=== PATIENT | male | born 1955 | race Caucasian/White ===

== ENCOUNTER → 2016-10-08 | Outpatient (CLI) | payer BC ==
[~2016-10-08] MED LIST: ADVIN10/60 INH; ALLO300T2 PO; ASPI81TA21 PO; AZEL0.15 NAE; FLUT27.5 NAE; FRS/40 PO; GLIM1TAB PO; IPRA17AE2 IN; LEVO-14 PO; LEVO1TAB35 PO; LORA5TAB3 PO; METF1000 PO; METO100T7 PO; SIMV20TA2 PO; SPIR50TA2 PO; TMF75 PO; [UNRECOGNIZED DRUG - CODE] PO
[2016-10-08 11:24] LABS: ESTIMATED AVERAGE GLUCOSE 146 mg/dl; HA1C FLAG Normal (Normal)
== END | disposition home or self-care (01) ==
LOC: C.LAB1850 09:30
PROVIDERS: ATTEND Nurse Practitioner Family
DX: E11.9 Type 2 diabetes mellitus without complications (principal)

== ENCOUNTER → 2017-01-30 | Outpatient (CLI) | payer BC ==
[2017-01-30 09:32] LABS: BASO % 0.3 %; BASO ABS # 0.03 K/uL (0-0.2); COMPLETE YES; EOS % 1.6 %; HEMATOCRIT 44.8 % (42-52); IG% 0.2 %; LYMPH ABS # 3.26 K/uL (1.2-3.4); MEAN CELL VOLUME 91.4 fL (80-100); MEAN CORPUSCULAR HEMOGLOBIN 29.8 pg (25-34); MEAN CORPUSCULAR HGB CONC 32.6 g/dl (32-36); MEAN PLATELET VOLUME 9.6 fL (7.4-10.4); MONO % 5.9 %; PLATELET COUNT 274 K/uL (130-400); WHITE BLOOD COUNT 11.63 K/uL (4.8-10.8)
[2017-01-30 09:54] LABS: ESTIMATED AVERAGE GLUCOSE 137 mg/dl; HA1C FLAG Normal (Normal)
[2017-01-30 10:02] LABS: ALT/SGPT 38 U/L (12-78); AST/SGOT 17 U/L (15-37); BLOOD UREA NITROGEN 16 mg/dl (7-18); BUN/CREATININE RATIO 14.2 (10-20); CALCIUM 9.1 mg/dl (8.5-10.1); CARBON DIOXIDE 25 mmol/L (21-32); CHLORIDE 108 mmol/L (98-107); GLUCOSE 111 mg/dl (70-99); POTASSIUM 4.2 mmol/L (3.5-5.1); SODIUM 140 mmol/L (136-145)
[2017-01-30 10:12] LABS: ALB/GLOB RATIO 0.8 (0.9-2); ALKALINE PHOSPHATASE 87 U/L (45-117); CHOLESTEROL 111 mg/dl (0-200); CHOLESTEROL/HDL RATIO 2.1; HDL CHOLESTEROL 52 mg/dl; LDL CHOLESTEROL CALCULATED 36 mg/dl; TRIGLYCERIDES 115 mg/dl (0-150); VERY LOW DENSITY LIPOPROT CALC 23 mg/dl
[2017-01-30 10:35] LABS: RATIO 5.6 mcg/mg (0-30.0)
== END | disposition home or self-care (01) ==
LOC: C.LAB1850 08:52
PROVIDERS: ATTEND Physician Assistant
DX: E11.9 Type 2 diabetes mellitus without complications (principal); I10 Essential (primary) hypertension; E78.00 Pure hypercholesterolemia, unspecified; Z11.59 Encounter for screening for other viral diseases

== ENCOUNTER → 2017-05-16 | Outpatient (CLI) | payer BC ==
[2017-05-16 11:46] LABS: THYROID STIMULATING HORMONE 2.74 uIu/ml (0.300-4.500)
[2017-05-16 11:47] LABS: ESTIMATED AVERAGE GLUCOSE 137 mg/dl; HA1C FLAG Normal (Normal)
[2017-05-17 13:39] LABS: MICROSOMAL AB <1 IU/ML (<9)
== END | disposition home or self-care (01) ==
LOC: C.LAB1850 09:01
PROVIDERS: ATTEND Physician Assistant
DX: Z11.59 Encounter for screening for other viral diseases (principal); E11.9 Type 2 diabetes mellitus without complications

== ENCOUNTER → 2018-01-14 | Outpatient (CLI) | payer BC ==
[~2018-01-14] MED LIST changes: +ASPI-319 PO; -ASPI81TA21 PO
[2018-01-14 09:45] LABS: HEMOGLOBIN A1C 6.2 % (4.5-5.6)
[2018-01-14 10:06] LABS: ALBUMIN 3.7 gm/dl (3.4-5.0); ALT/SGPT 32 U/L (12-78); AST/SGOT 19 U/L (15-37); BLOOD UREA NITROGEN 16 mg/dl (7-18); CALCIUM 9.2 mg/dl (8.5-10.1); CARBON DIOXIDE 24 mmol/L (21-32); CHOLESTEROL 102 mg/dl (0-200); CREATININE 1.07 mg/dl (0.60-1.40); GLUCOSE 105 mg/dl (70-99); SODIUM 138 mmol/L (136-145)
[2018-01-14 10:16] LABS: ALKALINE PHOSPHATASE 86 U/L (45-117); LDL CHOLESTEROL CALCULATED 34 mg/dl; TOTAL PROTEIN 7.8 gm/dl (6.4-8.2)
== END | disposition home or self-care (01) ==
LOC: C.LAB1850 08:44
PROVIDERS: ATTEND Physician Assistant
DX: E11.9 Type 2 diabetes mellitus without complications (principal)

== ENCOUNTER 2022-01-28 12:18 | Inpatient (IN) ==
[2022-01-28] MEDS ORDERED: GABAPENTIN 100 MG CAP PO STA (12:53)
[2022-01-28] MEDS ORDERED: ACETAMINOPHEN 1,000 MG/100 ML VIAL IV STA ×2 (12:53→19:43)
[2022-01-28] MEDS ORDERED: DICLOFENAC SOD 1% GEL 100 GM TUBE EXT STA (12:53)
--- NOTE | 2022-01-28 13:04 | Emergency Department Note ---
History of Present Illness General Chief complaint: Back Injury/Pain Stated complaint: LOWER BACK PAIN Time Seen by Provider: 01/28/22 12:39 Source: patient Mode of arrival: wheelchair Limitations: no limitations History of Present Illness Provider complaint: low back pain, right leg pain/numbness Onset (ago): day(s) 5 Location: back and lower extremity Radiation: extremity Maximum Pain Intensity: 10 Associated symptoms: + denies other symptoms Treatments prior to arrival: NSAID This is a 66-year-old male presents emergency department complaining of low back pain and right lower extremity pain and numbness. Patient states he does have history of spinal stenosis although symptoms have been well controlled over the last several months. He did have an MRI performed last year and followed up as an outpatient. Patient states he does exercise routinely. Patient states on he felt a slight twinge in his low back prior to exercising. He was able to come pleat his routine however Friday felt more sore and limited his activity. He states over the weekend and pain worsened and he began developing accompanying numbness, and by Friday he states it was hard to get out of bed. He states it has been difficult for him to find a comfortable position. Sitting and standing hurt. He finds that he has to lay or sit predominantly towards the left to take the pressure off of his right low back and right buttock where he has the majority of his pain. He states with any attempts at movement or ambulation the pain radiates down his right lower extremity. He states he also has numbness to the posterior aspect of his proximal right lower extremity and circumferentially around the right ankle. He denies weakness but states he feels unsteady because of the pain. He denies fevers or chills. Denies saddle anesthesia, incontinence, or other change in bowel or bladder function. He denies any coming abdominal pain. Patient states he was using Advil all day yesterday without any relief. Patient states he cannot take any narcotic pain medications due to severe nausea and vomiting. No prior low back surgery. No recent trauma. Pt seen during a time of high acuity and national emergency pandemic while wearing PPE. Home Medications Medication Instructions Recorded Confirmed Type aspirin 81 mg tablet,delayed 81 mg PO QAM 08/19/18 01/28/22 History release albuterol sulfate 90 mcg/actuation 1 puff INHALATION UD PRN #1 gm 03/26/19 01/28/22 History aerosol inhaler lancets (Microlet Lancet) #100 ea 04/14/20 01/07/22 Rx nasal flush 1 spray FLUSH BID 10/03/20 01/28/22 History FreeStyle Susan 2 [place] (flash #1 ea NS 10/20/20 01/07/22 Rx glucose scanning reader) montelukast 10 mg tablet 10 mg PO HS #90 tab 07/31/21 01/28/22 Rx ramipril 5 mg capsule 5 mg PO QAM #90 cap 08/06/21 01/28/22 Rx fluticasone 250 mcg-salmeterol 50 1 inh INHALATION BID #60 ea 10/05/21 01/28/22 Rx mcg/dose blistr powdr for inhalation (Advair Diskus) allopurinol 300 mg tablet 300 mg PO QPM #30 tab 11/15/21 01/28/22 Rx metoprolol succinate 100 mg 100 mg PO QAM #90 tab 11/15/21 01/28/22 Rx tablet,extended release 24 hr simvastatin 20 mg tablet 20 mg PO QPM #90 tab 11/15/21 01/28/22 Rx metformin 500 mg tablet 1,000 mg PO BID #120 tab 11/23/21 01/28/22 Rx empagliflozin 25 mg tablet 25 mg PO DAILY #90 tab 01/01/22 01/28/22 Rx (Jardiance) FreeStyle Susan 2 Sensor (flash #6 ea NS 01/08/22 Rx glucose sensor) amoxicillin 875 mg-potassium 1 tab PO BID #20 tab 01/22/22 01/28/22 Rx clavulanate 125 mg tablet levocetirizine 5 mg tablet 5 mg PO HS 01/28/22 01/28/22 History loratadine 5 mg-pseudoephedrine ER 1 tab PO QAM PRN 01/28/22 01/28/22 History 120 mg tablet,extended release,12hr (Claritin-D 12 Hour) ipratropium bromide 17 3 puff INHALATION BID #12.9 gm 01/29/22 Rx mcg/actuation HFA aerosol inhaler (Atrovent HFA) Allergies Allergy/AdvReac Type Severity Reaction Status Date / Time latex Allergy Mild RASH Verified 01/28/22 20:03 No Known Drug Allergies Allergy Unknown . Verified 01/28/22 20:03 pain killers AdvReac Unknown Nausea Uncoded 01/28/22 20:03 Past Med/Surg History Medical History (Updated 01/30/22 @ 00:46 by Masha Jansen DO) Aortic aneurysm follows with Dr. Benz ([facility]) annually. Last saw 09/2019: "mild dilatation of ascending aorta, only 4.2cm...has been stable." Asthma Advair daily, very rare albuterol, cant recall the last time he used it it has been so long. Cancer of the skin, basal cell Diabetes mellitus, type 2 Lumbar spinal stenosis Nausea and vomiting after administration of anesthetic agent Obesity Rupture of left triceps tendon Tachycardia "Persistent sinus tachycardia secondary to previous vagotomy," on BB Surgical History History of cataract surgery RT/LEFT History of colonoscopy History of endoscopic sinus surgery X 6 History of esophagogastroduodenoscopy (EGD) History of repair of rotator cuff RT/LEFT History of tonsillectomy History of tooth extraction Hx of vagotomy 1982 r/t abdominal bleed without unknown reason. S/P Mohs surgery for basal cell carcinoma S/P panniculectomy (2018) 05/13/18. Elective Glidescope intubation. S/P trigger finger release right thumb Family History Father Cancer Allergic rhinitis Mother Coronary heart disease Other No family history of adverse response to anesthesia Denies family history of Colon cancer Ovarian cancer Prostate cancer Myocardial infarction Breast cancer Social History Smoking Status: Never smoker Second Hand Exposure: No; Hx Alcohol Use: No Hx Substance Use: No Preferred Language: Eritrean Communication Ability: Effective Visual Impairment: No Limitations Hearing Ability: Normal Barrel Rifler Required: No Beliefs That Will Affect Care: None marital status: Current Living Situation: Spouse current occupational status: retired How many Children do You have: 2 Other Information That Helps Us Care for You: No Feels Safe at Home: Yes Safety Concerns: Feels Safe At This Time Childhood Exposure to Second-Hand Smoke: Yes caffeine: Yes during the past year weight has: remained stable Dental Care, Regularly: Yes Physical Activity Frequency: Daily Seatbelt Use: always Sunscreen Use: Yes Assistive Devices: None Review of Systems A total of 10 systems reviewed and were otherwise negative All systems reviewed & are unremarkable except as noted in HPI & below Physical Exam Vital Signs Vital Signs - 24 hr 01/28/22 12:21 01/28/22 14:19 01/28/22 16:00 Temperature 36.6 C 36.5 C Temperature Source Temporal Artery Scan Oral Pulse Rate 86 Pulse Rate [Finger] 78 57 L Pulse Rhythm [Finger] Regular Pulse Strength [Finger] Normal Respiratory Rate 20 18 16 Respiratory Effort / Characteristics Non-Labored Non-Labored Respiratory Depth Normal Normal Blood Pressure 138/73 Blood Pressure [Left Arm] 134/78 Blood Pressure Mean 94 Blood Pressure Mean [Left Arm] 96 Pulse Oximetry 94 96 94 Oxygen Delivery Method Room Air Room Air Room Air Sepsis Recent Fever Within 48 Hours No Sepsis New/Unexplained Change in Mental Status N/A Sepsis Action Taken by Nursing No Action Required 01/28/22 18:00 Temperature 36.7 C Temperature Source Oral Pulse Rate Pulse Rate [Finger] 74 Pulse Rhythm [Finger] Pulse Strength [Finger] Respiratory Rate 17 Respiratory Effort / Characteristics Respiratory Depth Blood Pressure Blood Pressure [Left Arm] 128/72 Blood Pressure Mean Blood Pressure Mean [Left Arm] 90 Pulse Oximetry 96 Oxygen Delivery Method Room Air Sepsis Recent Fever Within 48 Hours Sepsis New/Unexplained Change in Mental Status Sepsis Action Taken by Nursing GENERAL: alert, uncomfortable appearing, well nourished, no distress, non-toxic EYE EXAM: normal conjunctiva, PERRL and EOM's grossly intact OROPHARYNX: no exudate, no erythema, lips, buccal mucosa, and tongue normal and mucous membranes are moist NECK: supple, no nuchal rigidity, no adenopathy, non-tender LUNGS: Clear to auscultation. Normal chest wall mechanics, no w/r/r HEART: no murmurs, S1 normal and S2 normal ABDOMEN: abdomen soft, non-tender, normo-active bowel sounds, no masses, no rebound or guarding. BACK: Back is symmetrical on inspection and there is no deformity, no midline tenderness, no CVA tenderness. SKIN: no rashes and no bruising UPPER EXTREMITIES: upper extremities are grossly normal. FROM, nml pulses b/l. LOWER EXTREMITIES: No pitting edema. FROM, nml pulses b/l. Sensation intact, subjective sensory difference to the posterior right lower extremity proximally and at the right ankle. Patient is able to plantar and dorsiflex the right foot. NEURO EXAM: Normal sensorium, cranial nerves II-XII grossly intact, normal speech, no gross weakness of arms, no gross weakness of legs. Gross sensation intact. Course Course 1700: Patient states still having pain. MRI states they will not have any available machine until tomorrow. 1826: Patient states pain is slightly improved we will try to convert over to an oral agent for possible discharge. 1950: Patient still having pain after trial of oral medication. Unable to walk to the bathroom. Administered Medications Allopurinol (Allopurinol 300 Mg Tab) 300 mg PO QPM TORI Stop: 02/28/22 20:59 Last Admin: 01/29/22 21:00 Dose: 300 mg Documented by: [id number] Aspirin (Aspirin 81 Mg Ectab) 81 mg PO QAM TORI Stop: 02/28/22 08:59 Last Admin: 01/29/22 09:37 Dose: 81 mg Documented by: [id number] Cetirizine HCl (Cetirizine Hcl 10 Mg Tablet) 5 mg PO HS TORI Stop: 02/28/22 20:59 Last Admin: 01/29/22 21:00 Dose: 5 mg Documented by: [id number] Enalapril Maleate (Enalapril Maleate 10 Mg Tab) 20 mg PO QAM TORI Stop: 02/28/22 08:59 Last Admin: 01/29/22 09:37 Dose: 20 mg Documented by: [id number] Fluticasone/Vilanterol (Fluticasone/Vilanterol 200/25mcg 14 Puffs/Inhaler) 1 puffs INH DAILY TORI Stop: 02/28/22 08:59 Last Admin: 01/29/22 09:38 Dose: 1 puffs Documented by: [id number] Sodium Chloride (Nss 1000ml) 1,000 mls @ 125 mls/hr IV .Q8H TORI Stop: 02/27/22 12:59 Last Admin: 01/29/22 19:36 Dose: 125 mls/hr Documented by: [id number] Infusion: 01/29/22 19:36 Dose: 125 mls/hr Documented by: [id number] Admin: 01/29/22 12:43 Dose: 125 mls/hr Documented by: [id number] Infusion: 01/29/22 12:34 Dose: 125 mls/hr Documented by: [id number] Admin: 01/29/22 04:34 Dose: 125 mls/hr Documented by: [id number] Infusion: 01/29/22 04:34 Dose: 125 mls/hr Documented by: [id number] Admin: 01/28/22 21:01 Dose: 125 mls/hr Documented by: [id number] Infusion: 01/28/22 21:01 Dose: 0 mls/hr Documented by: [id number] Admin: 01/28/22 13:34 Dose: 125 mls/hr Documented by: [id number] Dexamethasone 6 mg/ Syringe 1.5 mls @ 1 mls/min IV Q8H TORI Stop: 02/27/22 22:59 Last Admin: 01/30/22 00:36 Dose: 1 mls/min Documented by: [id number] Admin: 01/29/22 15:38 Dose: 1 mls/min Documented by: [id number] Admin: 01/29/22 05:35 Dose: 1 mls/min Documented by: [id number] Admin: 01/29/22 00:01 Dose: 1 mls/min Documented by: [id number] Insulin Aspart (Insulin Aspart Per Unit) 0 units SC ACHS TORI Stop: 02/27/22 23:29 Last Admin: 01/29/22 20:58 Dose: 1 units Documented by: [id number] Cosigned by: [id number] Admin: 01/29/22 17:13 Dose: 3 units Documented by: [id number] Cosigned by: [id number] Admin: 01/29/22 12:27 Dose: 3 units Documented by: [id number] Cosigned by: [id number] Admin: 01/29/22 09:36 Dose: 3 units Documented by: [id number] Cosigned by: [id number] Admin: 01/29/22 01:31 Dose: Not Given Documented by: [id number] Metoprolol Succinate (Metoprolol Succ 50mg Ext Rel Tab) 100 mg PO QAM [facility] Stop: 02/28/22 08:59 Last Admin: 01/29/22 09:37 Dose: 100 mg Documented by: [id number] Montelukast Sodium (Montelukast Sodium 10 Mg Tablet) 10 mg PO HS TORI Stop: 02/28/22 20:59 Last Admin: 01/29/22 21:00 Dose: 10 mg Documented by: [id number] Morphine Sulfate (Morphine Sulfate 4 Mg/Ml 1 Ml Carp\\Vial) 4 mg IV Q3H PRN PRN Reason: Severe Pain Stop: 02/11/22 22:59 Last Admin: 01/29/22 19:35 Dose: 4 mg Documented by: [id number] Admin: 01/29/22 09:37 Dose: 4 mg Documented by: [id number] Admin: 01/29/22 04:32 Dose: 4 mg Documented by: [id number] Admin: 01/29/22 00:01 Dose: 4 mg Documented by: [id number] Simvastatin (Simvastatin 20 Mg Tab) 20 mg PO QPM TORI Stop: 02/28/22 20:59 Last Admin: 01/29/22 21:00 Dose: 20 mg Documented by: [id number] Discontinued Medications Diazepam (Diazepam 5 Mg/Ml Inj 10ml Vial) 2 mg IV NOW STA Stop: 01/28/22 12:54 Last Admin: 01/28/22 13:35 Dose: 2 mg Documented by: [id number] Diazepam (Diazepam 5 Mg/Ml Inj 10ml Vial) 2 mg IV NOW STA Stop: 01/28/22 14:25 Last Admin: 01/28/22 14:38 Dose: 2 mg Documented by: [id number] Diclofenac Sodium (Diclofenac Sod 1% Gel 100 Gm Tube) 1 gm EXT NOW STA Stop: 01/28/22 12:54 Last Admin: 01/28/22 13:34 Dose: 1 gm Documented by: [id number] Gabapentin (Gabapentin 100 Mg Cap) 100 mg PO NOW STA Stop: 01/28/22 12:54 Last Admin: 01/28/22 13:34 Dose: 100 mg Documented by: [id number] Acetaminophen ([facility]) 1,000 mg in 100 mls @ 400 mls/hr IV NOW STA Stop: 01/28/22 13:07 Last Infusion: 01/28/22 13:48 Dose: 0 mls/hr Documented by: [id number] Admin: 01/28/22 13:33 Dose: 400 mls/hr Documented by: [id number] Acetaminophen (Ofirm) 1,000 mg in 100 mls @ 400 mls/hr IV NOW STA Stop: 01/28/22 19:57 Last Infusion: 01/28/22 20:23 Dose: 0 mls/hr Documented by: [id number] Admin: 01/28/22 19:54 Dose: 400 mls/hr Documented by: [id number] Ketorolac Tromethamine (Ketorolac Tromethamine 15 Mg/Ml Vial) 10 mg IV NOW ONE Stop: 01/28/22 14:25 Last Admin: 01/28/22 14:38 Dose: 10 mg Documented by: [id number] Morphine Sulfate (Morphine Sulfate 4 Mg/Ml 1 Ml Carp\\Vial) 4 mg IV NOW STA Stop: 01/28/22 15:38 Last Admin: 01/28/22 15:49 Dose: 4 mg Documented by: [id number] Morphine Sulfate (Morphine Sulfate 4 Mg/Ml 1 Ml Carp\\Vial) 4 mg IV NOW STA Stop: 01/28/22 19:40 Last Admin: 01/28/22 19:47 Dose: 4 mg Documented by: [id number] Ondansetron HCl (Ondansetron Inj 2 Mg/Ml 2 Ml Vial) 4 mg IV NOW STA Stop: 01/28/22 17:07 Last Admin: 01/28/22 18:08 Dose: 4 mg Documented by: [id number] Tramadol HCl (Tramadol Hcl 50 Mg Tablet) 50 mg PO NOW STA Stop: 01/28/22 17:07 Last Admin: 01/28/22 18:15 Dose: 50 mg Documented by: [id number] Medical Decision Making Differential Diagnosis Differential diagnoses includes but is not limited to lumbar radiculopathy, muscle strain, facture, cauda equina, mass, and disc herniation. Medical Records Attestation: I reviewed the patient's medical records. Home Medications Current Medication List: was personally reviewed by me Laboratory Data Attestation: I reviewed the patient's lab results. Result diagrams: 01/29/22 07:30 01/29/22 10:53 Lab Results 01/28/22 01/28/22 Range/Units 13:25 19:50 POC Hgb 17.7 (14.0-18.0) g/dl POC Hct 52 (42-52) % POC Sodium 137 (135-144) mmol/L POC Potassium 5.4 H (3.3-5.0) mmol/L POC Chloride 107 (101-112) mmol/L POC Total CO2 25 (24-31) mmol/L POC Anion Gap 12.0 L (16-25) mmol/L POC BUN 29 H (7-18) mg/dl POC Creatinine 0.9 (0.6-1.3) mg/dl POC Glucose (other) 181 H (70-99) mg/dl POC Ioniz Calcium Dre 1.06 L (1.12-1.32) mmol/l SARS-CoV-2, RNA, NAAT NEGATIVE (NEGATIVE) MDM Narrative This is a 66-year-old male presents due to concern for acute worsening low back pain with right-sided lumbar radiculopathy. Patient does have a history of spinal stenosis and has previously had similar symptoms. Patient has had worsening symptoms over the last several days. No trauma, no fevers, no symptoms to suggest acute cauda equina. Unfortunately during patient's visit, both MRI machines were broken and additional imaging could not be performed. After several attempts at controlling the patient's pain with multiple doses of medications, patient had persistent intractable pain and was unable to walk and I felt could not be safely sent home. Case was discussed with the hospitalist for additional pain control and management. At this time I have a low suspicion for referred pain from vascular, GI, or etiology. I do not suspect pyelonephritis or renal colic. I do not suspect occult infectious etiology. An order was placed for continuous cardiac monitoring. The monitor shows a rate of _70_ with _normal sinus__ rhythm. Patient has no contributory family history. Patient was first seen and observation began at 1239 and was necessary in order to evaluate and treat pain with multiple doses of pain medication including multiple doses of narcotics Upon re-evaluation, 7 hours of observation revealed that the patient should be admitted. Discharge from observation at time 1945. Impression & Plan Back pain, Acute lumbar radiculopathy, Spinal stenosis, Acute hyperglycemia Discharge Plan Visit Data Chief Complaint: Back Injury/Pain Stated Complaint: LOWER BACK PAIN ED Provider: Masha Jansen Discharge Problem: Back pain, Acute lumbar radiculopathy, Spinal stenosis, Acute hyperglycemia Patient Disposition: Admitted As Inpatient Discharge Instructions Interventions: ED Discharge Assessment Last Done: 01/28/22 22:26 Discharge Problem: Back pain Qualifiers: Back pain location: low back pain Chronicity: chronic Back pain laterality: right Sciatica presence: with sciatica Sciatica laterality: sciatica of right side Qualified Code(s): M54.41 - Lumbago with sciatica, right side Spinal stenosis Qualifiers: Spinal region: lumbar Neurogenic claudication status: unspecified Qualified Code(s): M48.061 - Spinal stenosis, lumbar region without neurogenic c laudication
[2022-01-28] MEDS: SODIUM CHLORIDE 0.9% 1000ML 1,000 ML IV SCH ×2 (13:34→21:01)
[2022-01-28 13:38] LABS: iSTAT Creatinine 0.9 mg/dl (0.6-1.3); iSTAT Hemoglobin 17.7 g/dl (14.0-18.0); iSTAT Ionized Calcium 1.06 mmol/l (1.12-1.32); iSTAT Potassium 5.4 mmol/L (3.3-5.0)
[2022-01-28] MEDS ORDERED: KETOROLAC TROMETHAMINE 15 MG/ML VIAL IV ONE (14:24)
[2022-01-28] MEDS ORDERED: MoRPHine SULFATE 4 MG/ML 1 ML CARP\\VIAL IV STA ×2 (15:37→19:39)
[2022-01-28] MEDS ORDERED: traMADol HCL 50 MG TABLET PO STA (17:06)
[2022-01-28] MEDS ORDERED: ONDANSETRON INJ 2 MG/ML 2 ML VIAL IV STA (17:06)
--- NOTE | 2022-01-28 21:30 | History & Physical Report ---
Date of Service January 28, 2022 Assessment & Plan (1) Intractable low back pain: Plan: Intractable low back pain/lumbar spinal stenosis/lumbar disc disease with right lower extremity radiculopathy- Given multiple medications by the ED with some improvement in symptoms, as long as he maintains a posture lying on his left side: Diazepam 10 mg IV, gabapentin 100 mg p.o., Toradol 10 mg IV, diazepam 2 mg IV, morphine sulfate 4 mg IV, Zofran 4 mg IV, tramadol 50 mg p.o., morphine sulfate 4 mg IV and Tylenol 1 g IV. Give dexamethasone 6 mg IV now, and then every 8 hours Morphine sulfate 4 mg IV every 3 hours as needed moderate to severe pain The MRI unit is temporarily down in hospital this evening. We will order MRI lumbar spine once the appropriate part of the MRIs been found Of note, patient does see Dr. Bruce in the outpatient setting, who referred him to the ED this evening Consult Dr. Sheikh, orthopedic spine surgery (2) Lumbar disc disease with radiculopathy: Plan: See above (3) Lumbar spinal stenosis: Plan: See above (4) Hypertension: Plan: Continue metoprolol succinate 100 mg extended release daily, and ramipril 5 mg every morning (5) Extrinsic asthma: Plan: Continue routine inhalers (6) Hyperlipemia: Plan: Continue simvastatin 20 mg in evening (7) Type 2 diabetes mellitus: Plan: Hold empagliflozin and metformin Place on Accu-Cheks before meals and at bedtime with NovoLog coverage per scale (8) Peripheral neuropathy: (9) Chronic gout: Plan: Continue allopurinol 300 mg daily History of Present Illness Chief Complaint: The patient presents to the emergency department with worsening low back pain radiating down his right lower extremity with numbness Primary Care Provider: Stefano Ramirez, SHYLA, DEANNA The patient is a 66-year-old male with a past medical history including chronic maxillary sinusitis, allergic rhinitis, diabetic retinopathy, dilated aortic root, hypercholesterolemia, hypertension, morbid obesity, peripheral neuropathy, RBBB, selective IgM deficiency, diabetes mellitus and hyperlipidemia. Patient reports he exercises on a regular basis, however, 4 days ago he noticed a twinge in his low back prior to exercising, was able to exercise as normal, then felt more sore 3 days ago, limiting his activity. Since that time, his pain has worsened considerably, and radiates down his right lower extremity as noted. He notes that his right lower extremity has an area of numbness on the posterior calf area, and circumferentially around the ankle. He denies any direct history of trauma. He denies any loss of bowel or bladder control Allergies Allergy/AdvReac Type Severity Reaction Status Date / Time latex Allergy Mild RASH Verified 01/28/22 20:03 No Known Drug Allergies Allergy Unknown . Verified 01/28/22 20:03 pain killers AdvReac Unknown Nausea Uncoded 01/28/22 20:03 Home Medications Medication Instructions Recorded Confirmed Type aspirin 81 mg tablet,delayed 81 mg PO QAM 08/19/18 01/28/22 History release albuterol sulfate 90 mcg/actuation 1 puff INHALATION UD PRN #1 gm 03/26/19 01/28/22 History aerosol inhaler lancets (Microlet Lancet) #100 ea 04/14/20 01/07/22 Rx nasal flush 1 spray FLUSH BID 10/03/20 01/28/22 History FreeAchaogen Ssuan 2 [place] (flash #1 ea NS 10/20/20 01/07/22 Rx glucose scanning reader) montelukast 10 mg tablet 10 mg PO HS #90 tab 07/31/21 01/28/22 Rx ramipril 5 mg capsule 5 mg PO QAM #90 cap 08/06/21 01/28/22 Rx ipratropium bromide 17 3 puff INHALATION BID #12.9 gm 08/15/21 01/28/22 Rx mcg/actuation HFA aerosol inhaler (Atrovent HFA) fluticasone 250 mcg-salmeterol 50 1 inh INHALATION BID #60 ea 10/05/21 01/28/22 Rx mcg/dose blistr powdr for inhalation (Advair Diskus) allopurinol 300 mg tablet 300 mg PO QPM #30 tab 11/15/21 01/28/22 Rx metoprolol succinate 100 mg 100 mg PO QAM #90 tab 11/15/21 01/28/22 Rx tablet,extended release 24 hr simvastatin 20 mg tablet 20 mg PO QPM #90 tab 11/15/21 01/28/22 Rx metformin 500 mg tablet 1,000 mg PO BID #120 tab 11/23/21 01/28/22 Rx empagliflozin 25 mg tablet 25 mg PO DAILY #90 tab 01/01/22 01/28/22 Rx (Jardiance) FreeStyle Susan 2 Sensor (flash #6 ea NS 01/08/22 Rx glucose sensor) amoxicillin 875 mg-potassium 1 tab PO BID #20 tab 01/22/22 01/28/22 Rx clavulanate 125 mg tablet levocetirizine 5 mg tablet 5 mg PO HS 01/28/22 01/28/22 History loratadine 5 mg-pseudoephedrine ER 1 tab PO QAM PRN 01/28/22 01/28/22 History 120 mg tablet,extended release,12hr (Claritin-D 12 Hour) Past Med/Surg History Medical History (Updated 01/29/22 @ 04:39 by Christian Sorensen MD) Aortic aneurysm follows with Dr. Benz ([facility]) annually. Last saw 09/2019: "mild dilatation of ascending aorta, only 4.2cm...has been stable." Asthma Advair daily, very rare albuterol, cant recall the last time he used it it has been so long. Cancer of the skin, basal cell Diabetes mellitus, type 2 Lumbar spinal stenosis Nausea and vomiting after administration of anesthetic agent Obesity Rupture of left triceps tendon Tachycardia "Persistent sinus tachycardia secondary to previous vagotomy," on BB Surgical History History of cataract surgery RT/LEFT History of colonoscopy History of endoscopic sinus surgery X 6 History of esophagogastroduodenoscopy (EGD) History of repair of rotator cuff RT/LEFT History of tonsillectomy History of tooth extraction Hx of vagotomy 1982 r/t abdominal bleed without unknown reason. S/P Mohs surgery for basal cell carcinoma S/P panniculectomy (2018) 05/13/18. Elective Glidescope intubation. S/P trigger finger release right thumb Family History Father Cancer Allergic rhinitis Mother Coronary heart disease Other No family history of adverse response to anesthesia Denies family history of Colon cancer Ovarian cancer Prostate cancer Myocardial infarction Breast cancer Social History Smoking Status: Never smoker Second Hand Exposure: No; Hx Alcohol Use: No Hx Substance Use: No Preferred Language: Libyan Communication Ability: Effective Visual Impairment: No Limitations Hearing Ability: Normal Chicken Sexer Required: No Beliefs That Will Affect Care: None marital status: Current Living Situation: Spouse current occupational status: retired Other Information That Helps Us Care for You: No Feels Safe at Home: Yes Safety Concerns: Feels Safe At This Time Childhood Exposure to Second-Hand Smoke: Yes caffeine: Yes during the past year weight has: remained stable Dental Care, Regularly: Yes Physical Activity Frequency: Daily Seatbelt Use: always Sunscreen Use: Yes Assistive Devices: None Review of Systems Review of Systems: The patient denies chest pain, palpitations, shortness of breath, dyspnea on exertion, cough, lower extremity swelling, sore throat, fevers, chills, sweats, weight change, fatigue, nausea, vomiting, diarrhea , constipation, abdominal pain, pelvic pain, blood in urine or stool, dysuria, urinary frequency or urgency, lightheadedness, dizziness, headache, memory loss, loss of consciousness, rash, abnormal bruising or bleeding, focal or generalized weakness, numbness or tingling in arms , generalized arthralgias or myalgias, neck pain, or night sweats. The review of systems is otherwise negative other than for that already noted above, and at least 10 systems have been reviewed. Physical Exam Physical Exam: The patient is awake, alert and oriented 3, well developed and well nourished, normocephalic and atraumatic, lying in bed and in no acute distress. HEENT--PERRL, EOMI, mucous membranes and oropharynx normal. Neck--supple. No JVD. No bruits. Thyroid normal, trachea midline, no adenopathy. Heart--normal S1 and S2. No murmurs, rubs or gallops. Lungs--clear bilaterally, no respiratory distress, no accessory muscle use. Abdomen--normal bowel sounds and soft. Nontender. Nondistended. Obese Dermatologic--normal skin turgor, normal color, no abnormal lymph nodes, no rash. Neurologic--cranial nerves II through XII grossly intact. Rheumatologic--limited exam due to back and leg pain Psychiatric--normal affect. Results & Data Results & Data ([facility]) Vital Signs (Past 12 Hours) Vital Signs Temp Pulse Pulse Resp BP BP Pulse Ox 01/28/22 20:00 36.8 C 83 17 120/56 L 94 01/28/22 18:00 36.7 C 74 17 128/72 96 01/28/22 16:00 57 L 16 94 01/28/22 14:19 36.5 C 78 18 134/78 96 01/28/22 12:21 36.6 C 86 20 138/73 94 Laboratory Results Laboratory Results WBC 10.60 K/uL (4.8-10.8) 01/28/22 22:57 RBC 4.85 M/uL (4.7-6.1) 01/28/22 22:57 Hgb 14.8 g/dL (14.0-18.0) 01/28/22 22:57 POC Hgb 17.7 g/dl (14.0-18.0) 01/28/22 13:25 Hct 45.8 % (42-52) 01/28/22 22:57 POC Hct 52 % (42-52) 01/28/22 13:25 MCV 94.4 fL (80-100) 01/28/22 22:57 MCH 30.5 pg (25-34) 01/28/22 22:57 MCHC 32.3 g/dL (32-36) 01/28/22 22:57 RDW Std Deviation 51.0 fL (36.4-46.3) H 01/28/22 22:57 RDW Coeff of [place] 14.8 % (11.5-14.5) H 01/28/22 22:57 Plt Count 210 K/uL (130-400) 01/28/22 22:57 MPV 9.9 fL (7.4-10.4) 01/28/22 22:57 Immature Gran % (Auto) 0.2 % 01/28/22 22:57 Neut % (Auto) 71.1 % 01/28/22 22:57 Lymph % (Auto) 22.5 % 01/28/22 22:57 [place] % (Auto) 5.4 % 01/28/22 22:57 Eos % (Auto) 0.6 % 01/28/22 22:57 Baso % (Auto) 0.2 % 01/28/22 22:57 Neut # (Auto) 7.55 K/uL (1.4-6.5) H 01/28/22 22:57 Lymph # (Auto) 2.38 K/uL (1.2-3.4) 01/28/22 22:57 [place] # (Auto) 0.57 K/uL (0.11-0.59) 01/28/22 22:57 Eos # (Auto) 0.06 K/uL (0-0.5) 01/28/22 22:57 Baso # (Auto) 0.02 K/uL (0-0.2) 01/28/22 22:57 Immature Gran # (Auto) 0.02 K/uL (0.00-0.02) 01/28/22 22:57 POC Sodium 137 mmol/L (135-144) 01/28/22 13:25 Sodium 139 mmol/L (136-145) 01/28/22 22:57 POC Potassium 5.4 mmol/L (3.3-5.0) H 01/28/22 13:25 Potassium 4.4 mmol/L (3.5-5.1) 01/28/22 22:57 POC Chloride 107 mmol/L (101-112) 01/28/22 13:25 Chloride 106 mmol/L (98-107) 01/28/22 22:57 Carbon Dioxide 25 mmol/L (21-32) 01/28/22 22:57 POC Total CO2 25 mmol/L (24-31) 01/28/22 13:25 Anion Gap 8 (3-11) 01/28/22 22:57 POC Anion Gap 12.0 mmol/L (16-25) L 01/28/22 13:25 POC BUN 29 mg/dl (7-18) H 01/28/22 13:25 BUN 20 mg/dl (6-23) 01/28/22 22:57 Creatinine 0.92 mg/dl (0.6-1.4) 01/28/22 22:57 POC Creatinine 0.9 mg/dl (0.6-1.3) 01/28/22 13:25 Est Cr Clr Drug Dosing 101.6 ml/min 01/28/22 22:57 Est GFR ( Amer) 98.7 ml/min 01/28/22 22:57 Est GFR (Non-Af Amer) 85.2 ml/min 01/28/22 22:57 BUN/Creatinine Ratio 21.7 (10-20) H 01/28/22 22:57 Glucose 125 mg/dl (70-99(Fasting)) H 01/28/22 22:57 POC Glucose 127 mg/dl (70-99) H 01/29/22 00:09 POC Glucose (other) 181 mg/dl (70-99) H 01/28/22 13:25 Calcium 8.8 mg/dl (8.5-10.1) 01/28/22 22:57 POC Ioniz Calcium Dre 1.06 mmol/l (1.12-1.32) L 01/28/22 13:25 Total Bilirubin 0.4 mg/dl (0.2-1.0) 01/28/22 22:57 AST 16 U/L (13-39) 01/28/22 22:57 ALT 22 U/L (7-52) 01/28/22 22:57 Alkaline Phosphatase 71 U/L (34-104) 01/28/22 22:57 Total Protein 7.1 gm/dl (6.0-8.3) 01/28/22 22:57 Albumin 3.9 gm/dl (3.4-5.0) 01/28/22 22:57 Globulin 3.2 gm/dl (2.5-4.0) 01/28/22 22:57 Albumin/Globulin Ratio 1.2 (0.9-2) 01/28/22 22:57 SARS-CoV-2, RNA, NAAT NEGATIVE (NEGATIVE) 01/28/22 19:50 Diagnostic Findings [facility] [place] [phone] Magnetic Resonance Report Patient:HAMZAH COPELAND Admit Date:06/18/21 MR#:[id number] Address1:[facility] [address] Acct ID:[id number] Address2: Date:1955 [facility] Zip:[place] [address] Age:66 Location:MRI Sex:M Room/Bed: Att Phy:Ruslan Thomas PA-C Diagnosis:SPINAL STENOSIS Latoya Phy:Stefano Ramirez, III, DEANNA Service Date:06/18/21 Fam Phy: Interpreting Phy:Bruno Aranda MDAdmit Phy: Ordering Phy:Martha, Ruslan S., PA-C cc: ~ MRI OF THE LUMBAR SPINE WITHOUT IV CONTRAST CLINICAL HISTORY: Low back pain. Lower extremity radiculopathy. COMPARISON STUDY: No priors. TECHNIQUE: MRI of the lumbar spine is performed utilizing various T1 and T2- weighted sequences in the axial and sagittal planes. IV contrast was not administered for this examination. FINDINGS: Lumbar spine: Vertebral body height and alignment are maintained. Marrow signal intensity is slightly heterogeneous. Tiny anterior and lateral marginal osteophytes are seen throughout. The transverse and spinous processes appear intact. No destructive bony lesion is seen. Mild chronic degenerative endplate change is noted at L3-L4. Intervertebral discs: There is degenerative disc desiccation. Mild loss of height is seen at L3-L4. The remaining disc spaces appear preserved. Spinal cord: The visualized spinal cord is normal in morphology and signal intensity. The conus medullaris terminates at the L1-L2 interspace. The nerve roots of the cauda equina are normal in morphology. L1-L2: Unremarkable. L2-L3: Unremarkable. L3-L4: There is broad-based posterior disc bulge eccentric to the left. This abuts the transiting nerve roots, and contributes to [id number]-ic-enstrruq central canal stenosis with a minimum AP canal diameter of 7 mm. There is left greater than right-sided subarticular stenosis. This may impinge on the exiting left L3 nerve root. In conjunction with facet arthropathy there is mild left neural foraminal stenosis. The right neural foramen appears patent. L4-L5: There is broad-based posterior disc bulge. This impinges on the transiting nerve roots. In conjunction with hypertrophy of the ligamentum flavum there is severe central canal stenosis at this level. The minimum AP canal diameter measures 4.5 mm. There is bilateral subarticular stenosis, left greater than right. This likely impinges on the exiting bilateral L4 nerve roots. In conjunction with facet arthropathy there is mild to moderate bilateral neural foraminal stenosis. L5-S1: There is right lateral disc bulge. This contributes to subarticular stenosis and likely impinges on the exiting right L5 nerve root. The central can al is clear. Facet arthropathy contributes to moderate to severe right and minimal left neural foraminal stenosis. Sacrum: The visualized sacrum is normal in morphology and signal intensity. Soft tissues: The paraspinous soft tissues are normal as imaged. The retroperitoneal structures are grossly unremarkable but incompletely evaluated. IMPRESSION: 1. Multilevel lumbosacral spondylosis as above with acquired compromise of the central canal at L3-L4 and L4-L5. See discussion for detailed level by level analysis. 2. No destructive bony lesion is seen. 3. Additional findings as above. Dictated: 06/19/2021 8:53 AM Transcribed: 06/19/2021 9:11 AM Annalise [id number] JOHN_Maikol Electronically signed by: Bruno Aranda M.D. 06/19/2021 9:17 AM Dictated:06/19/21 0853 Transcribed: 06/19/21 0911 Code Status & VTE Plan Code Status Full code VTE Prophylaxis Plan VTE Prophylaxis will be ordered: Yes PG Care Time/CCT Total # of Minutes Spent Total Time Spent with Patient: Total time spent is greater than 50% in coordination of care (as documented) at patient's floor/unit and/or counseling patient: Coding Level of Care Code INT OBSERVATION CARE 70M LVL 3 Diagnoses Intractable low back pain M54.59 Lumbar disc disease with radiculopathy M51.16 Lumbar spinal stenosis M48.061 Chronic gout [id number] Hypertension I10 Extrinsic asthma J45.909 Hyperlipemia E78.5 Type 2 diabetes mellitus E11.69 Diabetes mellitus usp insulin use: without filling mixer use Diabetes mellitus complication status: with other specified complication Peripheral neuropathy G62.9 (1) Type 2 diabetes mellitus Diabetes mellitus usp insulin use: without usp use Diabetes mellitus complication status: with other specified complication Qualified Code(s): E11.69 - Type 2 diabetes mellitus with other specified complication
[2022-01-28] MEDS ORDERED: GLUCOSE 40% GEL 15 GM TUBE PO PRN (23:00)
[2022-01-28] MEDS ORDERED: CARBOHYDRATES FOR HYPOGLYCEMIA PO PRN (23:00)
[2022-01-28] MEDS ORDERED: GLUCOSE 10 TABS/TUBE PO PRN (23:00)
[2022-01-28] MEDS ORDERED: ACETAMINOPHEN 325 MG TAB PO PRN (23:00)
[2022-01-28] MEDS ORDERED: DEXTROSE 50% 50 ML SYRINGE IV PRN (23:00)
[2022-01-28] MEDS ORDERED: HYDROCODONE/ACETAMOPHEN 5/325MG TAB PO PRN (23:00)
[2022-01-28] MEDS ORDERED: ONDANSETRON INJ 2 MG/ML 2 ML VIAL IV PRN (23:00)
[2022-01-28] MEDS ORDERED: GLUCAGON FOR INJ 1 MG VIAL SQ PRN (23:00)
[2022-01-28] MEDS ORDERED: ALBUTEROL HFA 8 GM INHALER INH PRN (23:00)
[2022-01-28 23:45] LABS: Albumin Globulin Ratio 1.2 (0.9-2); Albumin Level 3.9 gm/dl (3.4-5.0); BUN Creatinine Ratio 21.7 (10-20); Bilirubin,Total 0.4 mg/dl (0.2-1.0); Calcium 8.8 mg/dl (8.5-10.1); Creatinine Clr Calc Pharmacy 101.6 ml/min; Est GFR (African American) 98.7 ml/min; Est GFR (Non-African American) 85.2 ml/min; Globulin 3.2 gm/dl (2.5-4.0); Potassium 4.4 mmol/L (3.5-5.1); Total Protein 7.1 gm/dl (6.0-8.3)
[2022-01-28 23:53] LABS: Basophils # (auto) 0.02 K/uL (0-0.2); Basophils % (auto) 0.2 %; Eosinophils # (auto) 0.06 K/uL (0-0.5); Eosinophils % (auto) 0.6 %; Hematocrit (blood only) 45.8 % (42-52); Hemoglobin 14.8 g/dL (14.0-18.0); Immature Granulocytes # (auto) 0.02 K/uL (0.00-0.02); Immature Granulocytes % (auto) 0.2 %; Lymphocytes # (auto) 2.38 K/uL (1.2-3.4); Lymphocytes % (auto) 22.5 %; Mean Corpuscular Hemoglobin 30.5 pg (25-34); Mean Corpuscular Hgb Conc 32.3 g/dL (32-36); Mean Corpuscular Volume 94.4 fL (80-100); Mean Platelet Volume 9.9 fL (7.4-10.4); Monocytes # (auto) 0.57 K/uL (0.11-0.59); Monocytes % (auto) 5.4 %; Neutrophils # (auto) 7.55 K/uL (1.4-6.5); Neutrophils % (auto) 71.1 %; Platelet Count 210 K/uL (130-400); RDW Coefficient of Variation 14.8 % (11.5-14.5); Red Blood Count 4.85 M/uL (4.7-6.1)
[2022-01-29] MEDS: MoRPHine SULFATE 4 MG/ML 1 ML CARP\\VIAL IV PRN ×4 (00:01→19:35)
[2022-01-29] MEDS: dexAMETHasone 6 MG in SYRINGE 0 ML IV SCH ×3 (00:01→15:38)
[2022-01-29] MEDS: INSULIN ASPART PER UNIT SC SCH ×5 (01:31→20:58)
[2022-01-29] MEDS: SODIUM CHLORIDE 0.9% 1000ML 1,000 ML IV SCH ×3 (04:34→19:36)
[2022-01-29 07:59] LABS: Basophils # (auto) 0.01 K/uL (0-0.2); Basophils % (auto) 0.1 %; Hematocrit (blood only) 49.2 % (42-52); Hemoglobin 16.1 g/dL (14.0-18.0); Immature Granulocytes # (auto) 0.03 K/uL (0.00-0.02); Immature Granulocytes % (auto) 0.3 %; Lymphocytes # (auto) 0.97 K/uL (1.2-3.4); Lymphocytes % (auto) 8.9 %; Mean Corpuscular Hemoglobin 31.6 pg (25-34); Mean Corpuscular Hgb Conc 32.7 g/dL (32-36); Mean Corpuscular Volume 96.5 fL (80-100); Mean Platelet Volume 10.1 fL (7.4-10.4); Monocytes # (auto) 0.08 K/uL (0.11-0.59); Monocytes % (auto) 0.7 %; Neutrophils # (auto) 9.85 K/uL (1.4-6.5); Platelet Count 229 K/uL (130-400); RDW Coefficient of Variation 14.6 % (11.5-14.5); RDW Standard Deviation 51.4 fL (36.4-46.3); White Blood Count 10.94 K/uL (4.8-10.8)
[2022-01-29 08:55] LABS: Estimated Average Glucose 154 mg/dl
[2022-01-29] MEDS ORDERED: FLUSH Flush SCH (09:00)
[2022-01-29] MEDS: ASPIRIN 81 MG ECTAB PO SCH (09:37)
[2022-01-29] MEDS: METOPROLOL SUCC 50MG EXT REL TAB PO SCH (09:37)
[2022-01-29] MEDS: ENALAPRIL MALEATE 10 MG TAB PO SCH (09:37)
[2022-01-29] MEDS: FLUTICASONE/VILANTEROL 200/25MCG 14 PUFFS/INHALER INH SCH (09:38)
[2022-01-29 10:02] LABS: Alanine Aminotransferase 22 U/L (7-52); Albumin Globulin Ratio 1.1 (0.9-2); Albumin Level 4.1 gm/dl (3.4-5.0); Alkaline Phosphatase 76 U/L (34-104); Anion Gap 10 (3-11); Bilirubin,Total 0.4 mg/dl (0.2-1.0); Blood Urea Nitrogen 20 mg/dl (6-23); Calcium 8.8 mg/dl (8.5-10.1); Carbon Dioxide 23 mmol/L (21-32); Chloride 106 mmol/L (98-107); Creatinine Clr Calc Pharmacy 98.7 ml/min; Est GFR (Non-African American) 86.3 ml/min; Globulin 3.6 gm/dl (2.5-4.0); Glucose 142 mg/dl (70-99(Fasting)); Sodium 139 mmol/L (136-145); Total Protein 7.7 gm/dl (6.0-8.3)
[2022-01-29 11:46] LABS: Appearance Urine Clear (Clear); Bilirubin Urine Negative (Negative); Blood Urine Negative (Negative); Color Urine Yellow; Glucose Urine UA 3+ (Negative); Ketones Urine 1+ (Negative); Leukocyte Esterase Urine Negative (Negative); Nitrite Urine Negative (Negative); Protein Urine Negative (Negative); Urobilinogen Urine Negative (Negative)
[2022-01-29 11:48] LABS: Potassium 4.7 mmol/L (3.5-5.1)
--- NOTE | 2022-01-29 13:58 | Orthopedic Consultation ---
Date of Consultation January 29, 2022 Assessment & Plan (1) Lumbar spinal stenosis: Assessment lumbar spinal stenosis with acute radiculopathy. Plan at this time we are awaiting an updated MRI lumbar spine. We will review these findings and make further conditions with may include consultation with interventional pain management for epidural injections. History of Present Illness Reason for Consultation: Back and right leg pain Attending Physician: Hasmukh Bender History of Present Illness This is a very pleasant 58-year-old male who presents last evening to emergency room with marked back and right leg pain and inability to ambulate. He states the symptoms began last . He has seen my partner for interventional pain management but not had any injections. He has been very committed to daily exercise routine and tolerated his condition well. He does have known lumbar spinal stenosis. He states his pain involves the lumbosacral spine spine into the right buttock posterior thigh into his foot. He is in the component of numbness and tingling in association with this pain. It is to the severity that he is unable to weight-bear on the right lower extremity and markedly limited with ambulation. He denies any significant left lower extremity pain denies any loss of bowel or bladder control. Allergies Allergy/AdvReac Type Severity Reaction Status Date / Time latex Allergy Mild RASH Verified 01/28/22 20:03 No Known Drug Allergies Allergy Unknown . Verified 01/28/22 20:03 pain killers AdvReac Unknown Nausea Uncoded 01/28/22 20:03 Home Medications Medication Instructions Recorded Confirmed Type aspirin 81 mg tablet,delayed 81 mg PO QAM 08/19/18 01/28/22 History release albuterol sulfate 90 mcg/actuation 1 puff INHALATION UD PRN #1 gm 03/26/19 01/28/22 History aerosol inhaler lancets (Microlet Lancet) #100 ea 04/14/20 01/07/22 Rx nasal flush 1 spray FLUSH BID 10/03/20 01/28/22 History FreeStyle Susan 2 [place] (flash #1 ea NS 10/20/20 01/07/22 Rx glucose scanning reader) montelukast 10 mg tablet 10 mg PO HS #90 tab 07/31/21 01/28/22 Rx ramipril 5 mg capsule 5 mg PO QAM #90 cap 08/06/21 01/28/22 Rx fluticasone 250 mcg-salmeterol 50 1 inh INHALATION BID #60 ea 10/05/21 01/28/22 Rx mcg/dose blistr powdr for inhalation (Advair Diskus) allopurinol 300 mg tablet 300 mg PO QPM #30 tab 11/15/21 01/28/22 Rx metoprolol succinate 100 mg 100 mg PO QAM #90 tab 11/15/21 01/28/22 Rx tablet,extended release 24 hr simvastatin 20 mg tablet 20 mg PO QPM #90 tab 11/15/21 01/28/22 Rx metformin 500 mg tablet 1,000 mg PO BID #120 tab 11/23/21 01/28/22 Rx empagliflozin 25 mg tablet 25 mg PO DAILY #90 tab 01/01/22 01/28/22 Rx (Jardiance) FreeStyle Susan 2 Sensor (flash #6 ea NS 01/08/22 Rx glucose sensor) amoxicillin 875 mg-potassium 1 tab PO BID #20 tab 01/22/22 01/28/22 Rx clavulanate 125 mg tablet levocetirizine 5 mg tablet 5 mg PO HS 01/28/22 01/28/22 History loratadine 5 mg-pseudoephedrine ER 1 tab PO QAM PRN 01/28/22 01/28/22 History 120 mg tablet,extended release,12hr (Claritin-D 12 Hour) ipratropium bromide 17 3 puff INHALATION BID #12.9 gm 01/29/22 Rx mcg/actuation HFA aerosol inhaler (Atrovent HFA) Patient History Medical History (Updated 01/29/22 @ 04:39 by Christian Sorensen MD) Aortic aneurysm follows with Dr. Benz ([facility]) annually. Last saw 09/2019: "mild dilatation of ascending aorta, only 4.2cm...has been stable." Asthma Advair daily, very rare albuterol, cant recall the last time he used it it has been so long. Cancer of the skin, basal cell Diabetes mellitus, type 2 Lumbar spinal stenosis Nausea and vomiting after administration of anesthetic agent Obesity Rupture of left triceps tendon Tachycardia "Persistent sinus tachycardia secondary to previous vagotomy," on BB Surgical History History of cataract surgery RT/LEFT History of colonoscopy History of endoscopic sinus surgery X 6 History of esophagogastroduodenoscopy (EGD) History of repair of rotator cuff RT/LEFT History of tonsillectomy History of tooth extraction Hx of vagotomy 1982 r/t abdominal bleed without unknown reason. S/P Mohs surgery for basal cell carcinoma S/P panniculectomy (2018) 05/13/18. Elective Glidescope intubation. 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 He does have reasonable strength testing lower extremities. He has sensation to light touch and cold to the right lower extremity. Results & Data ([facility]) Vital Signs (Past 12 Hours) Vital Signs Temp Pulse Resp BP Pulse Ox 01/29/22 08:14 36.6 C 87 16 112/56 L 92
--- NOTE | 2022-01-29 14:38 | Hospitalist Progress Note ---
Date of Service January 29, 2022 Assessment & Plan (1) Intractable low back pain: Plan: Intractable low back pain/lumbar spinal stenosis/lumbar disc disease with right lower extremity radiculopathy- Given multiple medications by the ED with some improvement in symptoms, as long as he maintains a posture lying on his left side: Diazepam 10 mg IV, gabapentin 100 mg p.o., Toradol 10 mg IV, diazepam 2 mg IV, morphine sulfate 4 mg IV, Zofran 4 mg IV, tramadol 50 mg p.o., morphine sulfate 4 mg IV and Tylenol 1 g IV. - continue dexamethasone 6 mg IV now, and then every 8 hours - continue Morphine sulfate 4 mg IV every 3 hours as needed moderate to severe pain - MRI unitl temporarily down on night of admission. will update but needs sedated (given inability to posture supine)-- MRI tomorrow with anesthesia consult - Dr. Sheikh consulted-- appreciate assistance. He will review MRI and consider LESI - Of note, patient does see Dr. Bruce in the outpatient setting, who referred him to the ED this evening (2) Lumbar disc disease with radiculopathy: Plan: See above (3) Lumbar spinal stenosis: Plan: See above (4) Hypertension: Plan: Continue metoprolol succinate 100 mg extended release daily, and ramipril 5 mg every morning (5) Extrinsic asthma: Plan: Continue routine inhalers (6) Hyperlipemia: Plan: Continue simvastatin 20 mg in evening (7) Type 2 diabetes mellitus: Plan: Hold empagliflozin and metformin Place on Accu-Cheks before meals and at bedtime with NovoLog coverage per scale - BS currently acceptable (150's). May experience steroid induced hyperglycemia thus will monitor closely (8) Peripheral neuropathy: Plan: - Chronic (9) Chronic gout: Plan: Continue allopurinol 300 mg daily Plan: Maintain hospital stay. MRI tomorrow with sedation. Potential pain management consult for lumbar epidural spinal injection Admission and Anticipated Discharge Date Admission Date: January 28, 2022 Subjective Patient seen on daily rounds today. Still with significant low back pain and right leg radiculopathy. Unable to lay flat on his back. Unable to ambulate given the intensity of the pain. Has not yet been able to have an MRI as machine down last night. In addition, he reports that he believes he needs to be sedated for the MRI given his inability to lay flat. Denies loss of bowel or bladder function. Review of Systems Review of Systems: All systems reviewed and are unremarkable except as noted in HPI and below Denies fevers, chills, headache, nasal congestion, sore throat, cough, chest pain, shortness of breath, palpitations, orthopnea, PND, abdominal pain, nausea, vomiting, diarrhea, constipation, dysuria, hematuria, frequency, joint pain or swelling, easy bruising or bleeding, skin lesions or rashes. Physical Exam Physical Exam: General: Resting comfortably in his hospital bed. Seems comfortable but with any limited movement, in obvious pain and discomfort NAD. HEENT: Head is AT/NC. Buccal mucosa is moist and pink Neck: No JVD. Negative hepatojugular reflex Cardiac: RRR with 1/6 MATTHEW Lungs: CTA without W/R/R Abdomen: Normoactive X4. Soft and nontender in all quadrants. Extremities: Positive right straight leg raise Neuro: A&O X4. Cranial nerves II through XII are grossly intact. No focal neuro deficits Skin: No obvious skin lesions or rashes Psych: Appropriate affect. Pleasant and cooperative Results & Data Results & Data ([facility]) Vital Signs (Past 12 Hours) Vital Signs Temp Pulse Resp BP Pulse Ox 01/29/22 08:14 36.6 C 87 16 112/56 L 92 PG Care Time/CCT Total # of Minutes Spent Total Time Spent with Patient: Total time spent is greater than 50% in coordination of care (as documented) at patient's floor/unit and/or counseling patient: Coding Level of Care Code 58072 Subseq Obs Care Lvl 2 Diagnoses Intractable low back pain M54.59 Lumbar disc disease with radiculopathy M51.16 Lumbar spinal stenosis M48.061 Hypertension I10 Extrinsic asthma J45.909 Hyperlipemia E78.5 Type 2 diabetes mellitus E11.69 Diabetes mellitus senior living insulin use: without long distance operator use Diabetes mellitus complication status: with other specified complication Peripheral neuropathy G62.9 Chronic gout [id number].[id number] (1) Type 2 diabetes mellitus Diabetes mellitus senior living insulin use: without long distance operator use Diabetes mellitus complication status: with other specified complication Qualified Code(s): E11.69 - Type 2 diabetes mellitus with other specified complication
[2022-01-29] MEDS: MONTELUKAST SODIUM 10 MG TABLET PO SCH (21:00)
[2022-01-29] MEDS: SIMVASTATIN 20 MG TAB PO SCH (21:00)
[2022-01-29] MEDS: allopurinoL 300 MG TAB PO SCH (21:00)
[2022-01-29] MEDS: CETIRIZINE HCL 10 MG TABLET PO SCH (21:00)
[2022-01-30] MEDS: dexAMETHasone 6 MG in SYRINGE 0 ML IV SCH ×4 (00:36→23:53)
[2022-01-30] MEDS: SODIUM CHLORIDE 0.9% 1000ML 1,000 ML IV SCH ×3 (03:01→23:53)
[2022-01-30 07:09] LABS: Basophils # (auto) 0.01 K/uL (0-0.2); Basophils % (auto) 0.1 %; Hematocrit (blood only) 44.2 % (42-52); Hemoglobin 14.3 g/dL (14.0-18.0); Immature Granulocytes # (auto) 0.04 K/uL (0.00-0.02); Immature Granulocytes % (auto) 0.3 %; Lymphocytes # (auto) 1.23 K/uL (1.2-3.4); Lymphocytes % (auto) 8.7 %; Mean Corpuscular Hemoglobin 30.3 pg (25-34); Mean Corpuscular Hgb Conc 32.4 g/dL (32-36); Mean Corpuscular Volume 93.6 fL (80-100); Mean Platelet Volume 9.9 fL (7.4-10.4); Monocytes # (auto) 0.42 K/uL (0.11-0.59); Neutrophils % (auto) 87.9 %; Platelet Count 208 K/uL (130-400); RDW Coefficient of Variation 14.7 % (11.5-14.5); RDW Standard Deviation 49.8 fL (36.4-46.3); Red Blood Count 4.72 M/uL (4.7-6.1)
[2022-01-30 07:39] LABS: Albumin Globulin Ratio 1.2 (0.9-2); Albumin Level 3.6 gm/dl (3.4-5.0); BUN Creatinine Ratio 26.5 (10-20); Bilirubin,Total 0.3 mg/dl (0.2-1.0); Calcium 8.5 mg/dl (8.5-10.1); Creatinine Clr Calc Pharmacy 108.2 ml/min; Est GFR (African American) 104.8 ml/min; Est GFR (Non-African American) 90.4 ml/min; Magnesium 1.9 mg/dl (1.7-2.4); Potassium 4.3 mmol/L (3.5-5.1); Total Protein 6.6 gm/dl (6.0-8.3)
[2022-01-30] MEDS: MoRPHine SULFATE 4 MG/ML 1 ML CARP\\VIAL IV PRN ×5 (07:55→23:52)
[2022-01-30] MEDS: INSULIN ASPART PER UNIT SC SCH ×4 (08:30→20:41)
[2022-01-30] MEDS: FLUTICASONE/VILANTEROL 200/25MCG 14 PUFFS/INHALER INH SCH (08:32)
[2022-01-30] MEDS: ENALAPRIL MALEATE 10 MG TAB PO SCH (08:32)
[2022-01-30] MEDS: METOPROLOL SUCC 50MG EXT REL TAB PO SCH (08:32)
[2022-01-30] MEDS: ASPIRIN 81 MG ECTAB PO SCH (08:33)
--- NOTE | 2022-01-30 10:39 | Anesthesiology Consultation ---
Date of Service January 30, 2022 Assessment & Plan (1) Encounter for pre-operative examination: Chart Review Chart Review: Acceptable Risk for Surgery and Patient NOT seen in Pre Admission Testing Consults Requested none History Surgery Operation Date: 01/30/22 12:00 Proposed Procedures p Lumbar MRI with Anesthesia Sedation - Tricia Mccabe PA-C Height/Weight Height: 5 ft 9 in Weight: 118.5 kg Allergies Allergy/AdvReac Type Severity Reaction Status Date / Time latex Allergy Mild RASH Verified 01/28/22 20:03 No Known Drug Allergies Allergy Unknown . Verified 01/28/22 20:03 pain killers AdvReac Unknown Nausea Uncoded 01/28/22 20:03 Medications Home Medications Medication Instructions Recorded Confirmed Last Taken aspirin 81 mg tablet,delayed 81 mg PO QAM 08/19/18 01/28/22 01/28/22 release albuterol sulfate 90 mcg/actuation 1 puff INHALATION UD PRN #1 gm 03/26/19 01/28/22 1 Day Ago aerosol inhaler ~11/19/19 lancets (Microlet Lancet) #100 ea 04/14/20 01/07/22 Unknown nasal flush 1 spray FLUSH BID 10/03/20 01/28/22 Unknown FreeStyle Susan 2 [place] (flash #1 ea NS 10/20/20 01/07/22 Unknown glucose scanning reader) montelukast 10 mg tablet 10 mg PO HS #90 tab 07/31/21 01/28/22 01/27/22 ramipril 5 mg capsule 5 mg PO QAM #90 cap 08/06/21 01/28/22 01/28/22 fluticasone 250 mcg-salmeterol 50 1 inh INHALATION BID #60 ea 10/05/21 01/28/22 01/28/22 mcg/dose blistr powdr for inhalation (Advair Diskus) allopurinol 300 mg tablet 300 mg PO QPM #30 tab 11/15/21 01/28/22 01/27/22 metoprolol succinate 100 mg 100 mg PO QAM #90 tab 11/15/21 01/28/22 01/28/22 tablet,extended release 24 hr simvastatin 20 mg tablet 20 mg PO QPM #90 tab 11/15/21 01/28/22 01/27/22 metformin 500 mg tablet 1,000 mg PO BID #120 tab 11/23/21 01/28/22 01/28/22 empagliflozin 25 mg tablet 25 mg PO DAILY #90 tab 01/01/22 01/28/22 01/28/22 (Jardiance) FreeStyle Susan 2 Sensor (flash #6 ea NS 01/08/22 Unknown glucose sensor) amoxicillin 875 mg-potassium 1 tab PO BID #20 tab 01/22/22 01/28/22 01/28/22 clavulanate 125 mg tablet levocetirizine 5 mg tablet 5 mg PO HS 01/28/22 01/28/22 01/27/22 loratadine 5 mg-pseudoephedrine ER 1 tab PO QAM PRN 01/28/22 01/28/22 Unknown 120 mg tablet,extended release,12hr (Claritin-D 12 Hour) ipratropium bromide 17 3 puff INHALATION BID #12.9 gm 01/29/22 Unknown mcg/actuation HFA aerosol inhaler (Atrovent HFA) Active Medications Generic Name Dose Route Start Last Admin Trade Name Freq PRN Reason Stop Dose Admin Albuterol 1 puffs 01/28/22 23:00 01/30/22 00:42 Albuterol Hfa 8 Gm Inhaler INH 02/27/22 22:59 1 puffs DAILY PRN Administration sob Allopurinol 300 mg 01/29/22 21:00 01/29/22 21:00 Allopurinol 300 Mg Tab PO 02/28/22 20:59 300 mg QPM TORI Administration Aspirin 81 mg 01/29/22 09:00 01/30/22 08:33 Aspirin 81 Mg Ectab PO 02/28/22 08:59 81 mg QAM TORI Administration Cetirizine HCl 5 mg 01/29/22 21:00 01/29/22 21:00 Cetirizine Hcl 10 Mg Tablet PO 02/28/22 20:59 5 mg HS TORI Administration Enalapril Maleate 20 mg 01/29/22 09:00 01/30/22 08:32 Enalapril Maleate 10 Mg Tab PO 02/28/22 08:59 20 mg QAM TORI Administration Fluticasone/Vilanterol 1 puffs 01/29/22 09:00 01/30/22 08:32 Fluticasone/Vilanterol 200/25mcg 14 Puffs/Inhaler INH 02/28/22 08:59 1 puffs DAILY TORI Administration Sodium Chloride 1,000 mls @ 125 mls/hr 01/28/22 13:00 01/30/22 10:35 Nss 1000ml IV 02/27/22 12:59 125 mls/hr .Q8H TORI Administration Dexamethasone 6 mg/ Syringe 1.5 mls @ 1 mls/min 01/28/22 23:00 01/30/22 05:45 IV 02/27/22 22:59 1 mls/min Q8H TORI Administration Insulin Aspart 0 units 01/28/22 23:30 01/30/22 08:30 Insulin Aspart Per Unit SC 02/27/22 23:29 1 units ACHS TORI Administration Metoprolol Succinate 100 mg 01/29/22 09:00 01/30/22 08:32 Metoprolol Succ 50mg Ext Rel Tab PO 02/28/22 08:59 100 mg QAM TORI Administration Montelukast Sodium 10 mg 01/29/22 21:00 01/29/22 21:00 Montelukast Sodium 10 Mg Tablet PO 02/28/22 20:59 10 mg HS TORI Administration Morphine Sulfate 4 mg 01/28/22 23:00 01/30/22 07:55 Morphine Sulfate 4 Mg/Ml 1 Ml Carp\\Vial IV 02/11/22 22:59 4 mg Q3H PRN Administration Severe Pain Simvastatin 20 mg 01/29/22 21:00 01/29/22 21:00 Simvastatin 20 Mg Tab PO 02/28/22 20:59 20 mg QPM TORI Administration Past Medical History Medical History Aortic aneurysm follows with Dr. Benz ([facility]) annually. Last saw 09/2019: "mild dilatation of ascending aorta, only 4.2cm...has been stable." Asthma Advair daily, very rare albuterol, cant recall the last time he used it it has been so long. Cancer of the skin, basal cell Diabetes mellitus, type 2 Lumbar spinal stenosis Nausea and vomiting after administration of anesthetic agent Obesity Rupture of left triceps tendon Tachycardia "Persistent sinus tachycardia secondary to previous vagotomy," on BB Past Family History Family History Father Cancer Allergic rhinitis Mother Coronary heart disease Other No family history of adverse response to anesthesia Denies family history of Colon cancer Ovarian cancer Prostate cancer Myocardial infarction Breast cancer Past Surgical History Surgical History History of cataract surgery RT/LEFT History of colonoscopy History of endoscopic sinus surgery X 6 History of esophagogastroduodenoscopy (EGD) History of repair of rotator cuff RT/LEFT History of tonsillectomy History of tooth extraction Hx of vagotomy 1982 r/t abdominal bleed without unknown reason. S/P Mohs surgery for basal cell carcinoma S/P panniculectomy (2018) 05/13/18. Elective Glidescope intubation. S/P trigger finger release right thumb Social History Smoking Status: Never smoker Hx Alcohol Use: No Hx Substance Use: No substance use type: does not use Physical Exam Vital Signs Last Vital Signs Temp 36.8 C 01/30/22 07:46 Pulse 59 L 01/30/22 07:46 Resp 16 01/30/22 07:46 BP 164/77 H 01/30/22 07:46 Pulse Ox 94 01/30/22 07:46 Testing Laboratory Results 01/30/22 06:53 01/30/22 06:53 Hemoglobin A1c 7.0 % (4.5-5.6) H 01/29/22 07:30 Urine Color Yellow 01/29/22 11:28 Urine Appearance Clear (Clear) 01/29/22 11:28 Urine pH 5.0 (4.5-7.5) 01/29/22 11:28 Ur Specific [place] 1.030 (1.000-1.030) 01/29/22 11:28 Urine Protein Negative (Negative) 01/29/22 11:28 Urine Glucose (UA) 3+ (Negative) H 01/29/22 11:28 Urine Ketones 1+ (Negative) H 01/29/22 11:28 Urine Nitrite Negative (Negative) 01/29/22 11:28 Ur Leukocyte Esterase Negative (Negative) 01/29/22 11:28 01/30/22 08:04 POC Glucose 160 H
[2022-01-30] MEDS ORDERED: ONDANSETRON INJ 2 MG/ML 2 ML VIAL IV PRN (10:40)
[2022-01-30] MEDS ORDERED: ePHEDrine sulfate 50 MG/ML AMP IV PRN (10:40)
[2022-01-30] MEDS ORDERED: ATROPINE SULFATE 0.1 MG/ML 10ML SYR IV PRN (10:40)
[2022-01-30] MEDS ORDERED: fentaNYL citrate 100 MCG/2 ML VIAL IV PRN (10:40)
[2022-01-30] MEDS ORDERED: LABETALOL HCL IV 5 MG/ML 20ML IV PRN (10:40)
[2022-01-30] MEDS ORDERED: PHENYLEPHRINE 100MCG/ML 5ML SYR IV PRN (10:40)
[2022-01-30] MEDS ORDERED: MIDAZOLAM HCL 1 MG/ML 2ML VIAL ONE (11:49)
[2022-01-30] MEDS ORDERED: fentaNYL citrate 100 MCG/2 ML VIAL ONE (11:49)
--- NOTE | 2022-01-30 12:42 | Anesthesiology Progress Note ---
Date of Service January 30, 2022 Anesthesia Post Procedure Vital Signs Vital Signs: Temp Pulse Pulse Resp BP Pulse Ox 01/30/22 11:27 36.7 C 61 20 137/65 95 01/30/22 11:11 37.0 C 59 L 16 159/71 H 93 01/30/22 07:46 36.8 C 59 L 16 164/77 H 94 01/30/22 00:43 67 20 95 01/29/22 22:43 36.8 C 64 18 151/74 H 95 01/29/22 15:00 36.8 C 84 16 115/62 92 Pain Intensity Lower Back: Pain Intensity: 3 Transfer of Care Handoff Completed per policy Notes Mental Status: alert / awake / arousable Patient Amnestic to Procedure: Yes Nausea / Vomiting: adequately controlled Pain: adequately controlled Airway Patency, RR, SpO2: stable & adequate BP & HR: stable & adequate Hydration State: stable & adequate Anesthetic Complications: no major complications apparent and Pt Satisfied with anesthetic care Notes: The patient is awake and comfortable.
--- NOTE | 2022-01-30 14:07 | Hospitalist Progress Note ---
Date of Service January 30, 2022 Assessment & Plan (1) Intractable low back pain: Plan: Intractable low back pain/lumbar spinal stenosis/lumbar disc disease with right lower extremity radiculopathy- Given multiple medications by the ED with some improvement in symptoms, as long as he maintains a posture lying on his left side: Diazepam 10 mg IV, gabapentin 100 mg p.o., Toradol 10 mg IV, diazepam 2 mg IV, morphine sulfate 4 mg IV, Zofran 4 mg IV, tramadol 50 mg p.o., morphine sulfate 4 mg IV and Tylenol 1 g IV. - continue dexamethasone 6 mg IV now, and then every 8 hours - continue Morphine sulfate 4 mg IV every 3 hours as needed moderate to severe pain - MRI unitl temporarily down on night of admission. will update but needs sedated (given inability to posture supine)-- MRI today (with anesthesia consult as sedation required) - Dr. Sheikh consulted-- appreciate assistance. He will review MRI and determine best course of action following. Consider LESI - Of note, patient does see Dr. Bruce in the outpatient setting, who referred him to the ED this evening (2) Leukocytosis: Plan: Likely reactive from steroids (3) Lumbar disc disease with radiculopathy: Plan: See above (4) Lumbar spinal stenosis: Plan: See above (5) Hypertension: Plan: Continue metoprolol succinate 100 mg extended release daily, and ramipril 5 mg every morning BP slightly acceleratedlikely pain related (6) Extrinsic asthma: Plan: Continue routine inhalers -Of note, patient has been on supplemental oxygen since admission, he has not be en hypoxic. Staff reports "placed prophylactically given his habitus and likelihood for BHUMI and potential hypoxemia with administration of narcotic medication) (7) Hyperlipemia: Plan: Continue simvastatin 20 mg in evening (8) Type 2 diabetes mellitus: Plan: Hold empagliflozin and metformin Place on Accu-Cheks before meals and at bedtime with NovoLog coverage per scale - BS currently acceptable (154, 144, 136). May experience steroid induced hyperglycemia thus will monitor closely (9) Peripheral neuropathy: Plan: - Chronic (10) Chronic gout: Plan: Continue allopurinol 300 mg daily Plan: Maintain hospital stay. MRI today (01/30) with sedation. Further treatment plan following MRI results. Potential pain management consult for lumbar epidural spinal injection Admission and Anticipated Discharge Date Admission Date: January 28, 2022 Subjective Patient seen on daily rounds today. Despite IV Decadron and IV morphine, patient still having significant pain. Still unable to lie supine. Has been unable to ambulate given the intensity of his pain. Is to have an MRI today with sedation. Following that, Dr. Sheikh to review and determine course of action (lumbar epidural spinal injection versus surgical need) Review of Systems Review of Systems: All systems reviewed and are unremarkable except as noted in HPI and below Denies fevers, chills, headache, nasal congestion, sore throat, cough, chest pain, shortness of breath, palpitations, orthopnea, PND, abdominal pain, nausea, vomiting, diarrhea, constipation, dysuria, hematuria, frequency, joint pain or swelling, easy bruising or bleeding, skin lesions or rashes. Physical Exam Physical Exam: General: Resting comfortably in his hospital bed. Seems comfortable but with any limited movement, in obvious pain and discomfort NAD. HEENT: Head is AT/NC. Buccal mucosa is moist and pink Neck: No JVD. Negative hepatojugular reflex Cardiac: RRR with 1/6 MATTHEW Lungs: CTA without W/R/R Abdomen: Normoactive X4. Soft and nontender in all quadrants. Extremities: Positive right straight leg raise Neuro: A&O X4. Cranial nerves II through XII are grossly intact. No focal neuro deficits Skin: No obvious skin lesions or rashes Psych: Appropriate affect. Pleasant and cooperative Results & Data Results & Data ([facility]) Vital Signs (Past 12 Hours) Vital Signs Temp Pulse Pulse Resp BP Pulse Ox 01/30/22 12:59 36.8 C 60 18 169/79 H 91 01/30/22 12:50 36.8 C 74 16 169/70 H 94 01/30/22 12:40 36.9 C 82 16 155/79 H 94 01/30/22 11:27 36.7 C 61 20 137/65 95 01/30/22 11:11 37.0 C 59 L 16 159/71 H 93 01/30/22 07:46 36.8 C 59 L 16 164/77 H 94 PG Care Time/CCT Total # of Minutes Spent Total Time Spent with Patient: Total time spent is greater than 50% in coordination of care (as documented) at patient's floor/unit and/or counseling patient: Coding Level of Care Code 74440 Subseq Hosp Care Lvl 1 Diagnoses Intractable low back pain M54.59 Lumbar disc disease with radiculopathy M51.16 Lumbar spinal stenosis M48.061 Hypertension I10 Extrinsic asthma J45.909 Hyperlipemia E78.5 Type 2 diabetes mellitus E11.69 Diabetes mellitus nursing home insulin use: without hourly sales staff use Diabetes mellitus complication status: with other specified complication Peripheral neuropathy G62.9 Chronic gout M1A.9XX0 Leukocytosis D72.829 (1) Type 2 diabetes mellitus Diabetes mellitus nursing home insulin use: without hourly sales staff use Diabetes mellitus complication status: with other specified complication Qualified Code(s): E11.69 - Type 2 diabetes mellitus with other specified complication
--- NOTE | 2022-01-30 15:27 | Magnetic Resonance Report ---
MR LUMBAR SPINE WO CON CLINICAL HISTORY: 66 years-old Male with low back pain with radiculopathy. Chronic low back pain. COMPARISON: MRI lumbar spine 06/18/2021 TECHNIQUE: Multiplanar, multi sequence MRI of the lumbar spine was performed without intravenous cont rast. FINDINGS: The in store demonstrator localizer images demonstrate no gross extraspinal abnormality. The imaged intra-abdominal s tructures are unremarkable. Nonspecific bilateral perinephric stranding, right greater than left. The conus medullaris terminates at the L1 level. Normal signal within the imaged thoracic spinal cord. U nremarkable cauda equina. No acute fracture, subluxation or endplate erosion. Mild marrow edema is no [place] involving the pedicles and facets at L4-L5 with mild adjacent deep tissue edema, likely reactive. Edema tracks into the paraspinal musculature. T12-L1: There is mild spondylitic spurring with ligamentum flavum thickening and moderate facet arth rosis. No central canal or neural foraminal stenosis. L1-L2: There is mild spondylitic spurring with ligamentum flavum thickening and moderate facet arthro sis. No central canal or neural foraminal stenosis. L2-L3: There is mild spondylitic spurring with ligamentum flavum thickening and moderate facet arthro sis. No central canal or neural foraminal stenosis. L3-L4: Mild intervertebral disc space narrowing with spondylitic spurring. Posterior annular disc bu lge with ligamentum flavum thickening and moderate facet arthrosis. Mild to moderate central canal st enosis, AP dimension of the thecal sac measuring 7 mm. There is mild narrowing of the left greater th an right lateral recesses. There is mild left greater than right neural foraminal narrowing which is stable. L4-L5: Mild spondylitic spurring with small circumferential annular disc bulge. Ligamentum flavum th ickening with severe facet arthrosis and bilateral facet effusions. There is severe central canal rad nosis, AP dimension of the thecal sac measuring 4.5 mm, unchanged. There is severe narrowing of the l ateral recesses. Mild to moderate right with moderate left neural foraminal narrowing is similar to p rior. L5-S1: Right foraminal/right far lateral disc bulge is redemonstrated likely abutting the exiting L5 nerve root. Ligamentum flavum thickening with severe facet arthrosis and small facet effusions. Mode rate to severe right with mild left neural foraminal narrowing is unchanged. The central canal is pat ent. IMPRESSION: 1. Multilevel discogenic degeneration with ligamentum flavum thickening and facet arthrosis as above. The study is generally stable from the 06/18/2021 exam. 2. High-grade central canal narrowing at L4-L5 redemonstrated along with multilevel neural foraminal narrowing. ACT 112: Negative or not required by law. The above report was generated using voice recognition software. It may contain grammatical, syntax o r spelling errors. Dictated: 01/30/2022 1:52 PM Transcribed: 01/30/2022 2:27 PM Keke [id number] [facility] Electronically signed by: Nabeel Harris M.D. 01/30/2022 3:25 PM
--- NOTE | 2022-01-30 16:06 | Orthopedic Progress Note ---
Date of Service January 30, 2022 Assessment & Plan (1) Lumbar disc disease with radiculopathy: Plan: MRI lumbar spine performed today is available for review. It demonstrates severe spinal stenosis with central subarticular and foraminal disease at L4-L5. He also demonstrates new far lateral disc herniation L5-S1 on the right with severe neuroforaminal encroachment and compression of the exiting L5 nerve root. I did have a lengthy discussion today with the patient and his reviewing his MRI findings and clinical presentation. We discussed possible epidural injections versus surgical intervention. He is in extreme pain and unable to ambulate understands the injections would provide temporary relief and would like to pursue surgical intervention. Surgery require lumbar decompression and fusion L4-L5 L5-S1. He requires aggressive facetectomies and foraminotomies to adequately address his neural compression. This creates further instability and subsequently requiring fusion. Risk benefits pros cons alternatives were outlined in detail. Risk include but not limited to anesthesia blindness stroke paralysis nerve damage blood loss requiring transfusion infection requiring reoperation passively marked improvement of his radiculopathy. Hop efully up and ambulating soon as possible. At this time we will make him n.p.o. after midnight and plan for surgery tomorrow. Admission and Anticipated Discharge Date Admission Date: January 30, 2022 Subjective She continues to have severe right leg pain. He is unable to stand and ambulate any distance. Physical Exam Physical Exam: Patient is in obvious distress. I did have him stand up for me today. He is able to put modest weight on the right lower extremity but is unable to do so for any length of time as he reproduces severe right buttock pain and leg pain. He cannot ambulate. He must sit and lean on the left side to relieve any pain. Results & Data ([facility]) Vital Signs (Past 12 Hours) Vital Signs Temp Pulse Pulse Resp BP Pulse Ox 01/30/22 12:59 36.8 C 60 18 169/79 H 91 01/30/22 12:50 36.8 C 74 16 169/70 H 94 01/30/22 12:40 36.9 C 82 16 155/79 H 94 01/30/22 11:27 36.7 C 61 20 137/65 95 01/30/22 11:11 37.0 C 59 L 16 159/71 H 93 01/30/22 07:46 36.8 C 59 L 16 164/77 H 94
[2022-01-30] MEDS: CETIRIZINE HCL 10 MG TABLET PO SCH (20:21)
[2022-01-30] MEDS: allopurinoL 300 MG TAB PO SCH (20:21)
[2022-01-30] MEDS: SIMVASTATIN 20 MG TAB PO SCH (20:22)
[2022-01-30] MEDS: MONTELUKAST SODIUM 10 MG TABLET PO SCH (20:23)
[2022-01-31] MEDS: SODIUM CHLORIDE 0.9% 1000ML 1,000 ML IV SCH ×3 (05:12→21:11)
[2022-01-31] MEDS: MoRPHine SULFATE 4 MG/ML 1 ML CARP\\VIAL IV PRN ×3 (05:20→13:12)
[2022-01-31 05:34] LABS: Hemoglobin 14.3 g/dL (14.0-18.0); Immature Granulocytes # (auto) 0.05 K/uL (0.00-0.02); Immature Granulocytes % (auto) 0.4 %; Lymphocytes # (auto) 1.17 K/uL (1.2-3.4); Lymphocytes % (auto) 9.4 %; Mean Corpuscular Hemoglobin 30.6 pg (25-34); Mean Corpuscular Hgb Conc 32.5 g/dL (32-36); Mean Corpuscular Volume 94.2 fL (80-100); Monocytes # (auto) 0.49 K/uL (0.11-0.59); Monocytes % (auto) 3.9 %; Neutrophils # (auto) 10.74 K/uL (1.4-6.5); Neutrophils % (auto) 86.3 %; Platelet Count 211 K/uL (130-400); RDW Coefficient of Variation 14.9 % (11.5-14.5); RDW Standard Deviation 51.3 fL (36.4-46.3); Red Blood Count 4.67 M/uL (4.7-6.1); White Blood Count 12.45 K/uL (4.8-10.8)
[2022-01-31] MEDS: dexAMETHasone 6 MG in SYRINGE 0 ML IV SCH ×2 (05:37→20:36)
[2022-01-31 06:05] LABS: Albumin Globulin Ratio 1.3 (0.9-2); Albumin Level 3.7 gm/dl (3.4-5.0); BUN Creatinine Ratio 34.2 (10-20); Bilirubin,Total 0.3 mg/dl (0.2-1.0); Calcium 8.5 mg/dl (8.5-10.1); Creatinine Clr Calc Pharmacy 118.2 ml/min; Est GFR (African American) 108.7 ml/min; Est GFR (Non-African American) 93.7 ml/min; Globulin 2.8 gm/dl (2.5-4.0); Potassium 4.3 mmol/L (3.5-5.1); Total Protein 6.5 gm/dl (6.0-8.3)
[2022-01-31] MEDS: ASPIRIN 81 MG ECTAB PO SCH (08:04)
[2022-01-31] MEDS: ENALAPRIL MALEATE 10 MG TAB PO SCH (08:04)
[2022-01-31] MEDS: METOPROLOL SUCC 50MG EXT REL TAB PO SCH (08:05)
[2022-01-31] MEDS: FLUTICASONE/VILANTEROL 200/25MCG 14 PUFFS/INHALER INH SCH (08:05)
[2022-01-31] MEDS: INSULIN ASPART PER UNIT SC SCH ×4 (08:06→21:38)
--- NOTE | 2022-01-31 13:25 | Anesthesiology Consultation ---
Date of Service January 31, 2022 Assessment & Plan (1) Encounter for pre-operative examination: Chart Review Chart Review: entry level account manager initiated History Surgery Operation Date: 01/30/22 12:00 Proposed Procedures p Lumbar MRI with Anesthesia Sedation - Tricia Mccabe PA-C Operation Date: 01/31/22 07:00 Proposed Procedures p L4-L5 L5-S1 Decompression and Fusion - Frank Sheikh, Height/Weight Height: 5 ft 9 in Weight: 118.5 kg Allergies Allergy/AdvReac Type Severity Reaction Status Date / Time latex Allergy Mild RASH Verified 01/30/22 11:27 pain killers AdvReac Intermediate Nausea / Uncoded 01/30/22 11:27 vomiting Medications Home Medications Medication Instructions Recorded Confirmed Last Taken aspirin 81 mg tablet,delayed 81 mg PO QAM 08/19/18 01/28/22 01/28/22 release albuterol sulfate 90 mcg/actuation 1 puff INHALATION UD PRN #1 gm 03/26/19 01/28/22 1 Day Ago aerosol inhaler ~11/19/19 lancets (Microlet Lancet) #100 ea 04/14/20 01/07/22 Unknown nasal flush 1 spray FLUSH BID 10/03/20 01/28/22 Unknown FreeStyle Susan 2 [place] (flash #1 ea NS 10/20/20 01/07/22 Unknown glucose scanning reader) montelukast 10 mg tablet 10 mg PO HS #90 tab 07/31/21 01/28/22 01/27/22 ramipril 5 mg capsule 5 mg PO QAM #90 cap 08/06/21 01/28/22 01/28/22 fluticasone 250 mcg-salmeterol 50 1 inh INHALATION BID #60 ea 10/05/21 01/28/22 01/28/22 mcg/dose blistr powdr for inhalation (Advair Diskus) allopurinol 300 mg tablet 300 mg PO QPM #30 tab 11/15/21 01/28/22 01/27/22 metoprolol succinate 100 mg 100 mg PO QAM #90 tab 11/15/21 01/28/22 01/28/22 tablet,extended release 24 hr simvastatin 20 mg tablet 20 mg PO QPM #90 tab 11/15/21 01/28/22 01/27/22 metformin 500 mg tablet 1,000 mg PO BID #120 tab 11/23/21 01/28/22 01/28/22 empagliflozin 25 mg tablet 25 mg PO DAILY #90 tab 01/01/22 01/28/22 01/28/22 (Jardiance) FreeStyle Susan 2 Sensor (flash #6 ea NS 01/08/22 Unknown glucose sensor) amoxicillin 875 mg-potassium 1 tab PO BID #20 tab 01/22/22 01/28/22 01/28/22 clavulanate 125 mg tablet levocetirizine 5 mg tablet 5 mg PO HS 01/28/22 01/28/22 01/27/22 loratadine 5 mg-pseudoephedrine ER 1 tab PO QAM PRN 01/28/22 01/28/22 Unknown 120 mg tablet,extended release,12hr (Claritin-D 12 Hour) ipratropium bromide 17 3 puff INHALATION BID #12.9 gm 01/29/22 Unknown mcg/actuation HFA aerosol inhaler (Atrovent HFA) Active Medications Generic Name Dose Route Start Last Admin Trade Name Freq PRN Reason Stop Dose Admin Albuterol 1 puffs 01/28/22 23:00 01/30/22 00:42 Albuterol Hfa 8 Gm Inhaler INH 02/27/22 22:59 1 puffs DAILY PRN Administration sob Allopurinol 300 mg 01/29/22 21:00 01/30/22 20:21 Allopurinol 300 Mg Tab PO 02/28/22 20:59 300 mg QPM TORI Administration Aspirin 81 mg 01/29/22 09:00 01/31/22 08:04 Aspirin 81 Mg Ectab PO 02/28/22 08:59 81 mg QAM TORI Administration Cetirizine HCl 5 mg 01/29/22 21:00 01/30/22 20:21 Cetirizine Hcl 10 Mg Tablet PO 02/28/22 20:59 5 mg HS TORI Administration Enalapril Maleate 20 mg 01/29/22 09:00 01/31/22 08:04 Enalapril Maleate 10 Mg Tab PO 02/28/22 08:59 20 mg QAM TORI Administration Fluticasone/Vilanterol 1 puffs 01/29/22 09:00 01/31/22 08:05 Fluticasone/Vilanterol 200/25mcg 14 Puffs/Inhaler INH 02/28/22 08:59 1 puffs DAILY TORI Administration Sodium Chloride 1,000 mls @ 125 mls/hr 01/28/22 13:00 01/31/22 13:06 Nss 1000ml IV 02/27/22 12:59 125 mls/hr .Q8H TORI Administration Dexamethasone 6 mg/ Syringe 1.5 mls @ 1 mls/min 01/28/22 23:00 01/31/22 05:37 IV 02/27/22 22:59 1 mls/min Q8H TORI Administration Insulin Aspart 0 units 01/28/22 23:30 01/31/22 13:06 Insulin Aspart Per Unit SC 02/27/22 23:29 Not Given ACHS TORI Metoprolol Succinate 100 mg 01/29/22 09:00 01/31/22 08:05 Metoprolol Succ 50mg Ext Rel Tab PO 02/28/22 08:59 100 mg QAM TORI Administration Montelukast Sodium 10 mg 01/29/22 21:00 01/30/22 20:23 Montelukast Sodium 10 Mg Tablet PO 02/28/22 20:59 10 mg HS TORI Administration Morphine Sulfate 4 mg 01/28/22 23:00 01/31/22 13:12 Morphine Sulfate 4 Mg/Ml 1 Ml Carp\\Vial IV 02/11/22 22:59 4 mg Q3H PRN Administration Severe Pain Simvastatin 20 mg 01/29/22 21:00 01/30/22 20:22 Simvastatin 20 Mg Tab PO 02/28/22 20:59 20 mg QPM TORI Administration NPO Date Last Intake of Fluids: 01/29/22 Time Last Intake of Fluids: 23:30 Last Intake of Fluids Comment: sips this am of water with meds Date Last Intake of Solids: 01/29/22 Time Last Intake of Solids: 17:30 Past Medical History Medical History Aortic aneurysm follows with Dr. Benz ([facility]) annually. Last saw 09/2019: "mild dilatation of ascending aorta, only 4.2cm...has been stable." Asthma Advair daily, very rare albuterol, cant recall the last time he used it it has been so long. Cancer of the skin, basal cell Chronic sinusitis Diabetes mellitus, type 2 Lumbar spinal stenosis Nausea and vomiting after administration of anesthetic agent Obesity Rupture of left triceps tendon Tachycardia "Persistent sinus tachycardia secondary to previous vagotomy," on BB Past Family History Family History Father Cancer Allergic rhinitis Mother Coronary heart disease Other No family history of adverse response to anesthesia Denies family history of Colon cancer Ovarian cancer Prostate cancer Myocardial infarction Breast cancer Past Surgical History Surgical History History of cataract surgery RT/LEFT History of colonoscopy History of endoscopic sinus surgery X 6 History of esophagogastroduodenoscopy (EGD) History of repair of rotator cuff RT/LEFT History of tonsillectomy History of tooth extraction Hx of vagotomy 1983 r/t abdominal bleed without unknown reason. S/P Mohs surgery for basal cell carcinoma S/P panniculectomy (2018) 05/13/18. Elective Glidescope intubation. S/P trigger finger release right thumb Social History Smoking Status: Never smoker Hx Alcohol Use: No Hx Substance Use: No substance use type: does not use Physical Exam Vital Signs Last Vital Signs Temp 97.9 F 01/31/22 07:18 Pulse 54 L 01/31/22 07:18 Resp 18 01/31/22 07:18 BP 167/90 H 01/31/22 07:18 Pulse Ox 93 01/31/22 07:18 Testing Laboratory Results 01/31/22 05:22 01/31/22 05:22 Hemoglobin A1c 7.0 % (4.5-5.6) H 01/29/22 07:30 Urine Color Yellow 01/29/22 11:28 Urine Appearance Clear (Clear) 01/29/22 11:28 Urine pH 5.0 (4.5-7.5) 01/29/22 11:28 Ur Specific [place] 1.030 (1.000-1.030) 01/29/22 11:28 Urine Protein Negative (Negative) 01/29/22 11:28 Urine Glucose (UA) 3+ (Negative) H 01/29/22 11:28 Urine Ketones 1+ (Negative) H 01/29/22 11:28 Urine Nitrite Negative (Negative) 01/29/22 11:28 Ur Leukocyte Esterase Negative (Negative) 01/29/22 11:28 Blood Type O Positive 01/31/22 07:06 Antibody Screen NEGATIVE 01/31/22 07:06 01/31/22 01/31/22 11:53 08:10 POC Glucose 146 H 146 H Electrocardiogram Date: 01/31/22 Sinus bradycardia, rate 55 bpm Right bundle branch block Abnormal ECG When compared with ECG of 01-MAY-2018 09:17, Vent. rate has decreased BY 32 BPM Echocardiogram Date: 07/04/16 LVH with normal systolic but abnormal diastolic LV function Moderately dilated aortic root Mild pulmonary HTN with PASP 38mmHg Study is similar to the echo report dated 12/29/14
[2022-01-31] MEDS ORDERED: ATROPINE SULFATE 0.1 MG/ML 10ML SYR IV PRN (14:02)
[2022-01-31] MEDS ORDERED: HYDROmorphone INJ 1 MG/ML SYRINGE IV PRN ×2 (14:02→20:11)
[2022-01-31] MEDS ORDERED: ONDANSETRON INJ 2 MG/ML 2 ML VIAL IV PRN ×2 (14:02→20:11)
[2022-01-31] MEDS ORDERED: ePHEDrine sulfate 50 MG/ML AMP IV PRN (14:02)
--- NOTE | 2022-01-31 14:02 | Hospitalist Progress Note ---
Date of Service January 31, 2022 Assessment & Plan (1) Intractable low back pain: Plan: Intractable low back pain/lumbar spinal stenosis/lumbar disc disease with right lower extremity radiculopathy- Given multiple medications by the ED with some improvement in symptoms, as long as he maintains a posture lying on his left side: Diazepam 10 mg IV, gabapentin 100 mg p.o., Toradol 10 mg IV, diazepam 2 mg IV, morphine sulfate 4 mg IV, Zofran 4 mg IV, tramadol 50 mg p.o., morphine sulfate 4 mg IV and Tylenol 1 g IV. - continue dexamethasone 6 mg IV now, and then every 8 hours - continue Morphine sulfate 4 mg IV every 3 hours as needed moderate to severe pain - MRI unitl temporarily down on night of admission. will update but needs sedated (given inability to posture supine)-- MRI performed 01/30 - Dr. Sheikh consulted-- appreciate assistance. Plans for lumbar decompression and fusion today. - Has been NPO since MN last PM for OR today (2) Leukocytosis: Plan: - Likely reactive from steroids (3) Lumbar disc disease with radiculopathy: Plan: See above (4) Lumbar spinal stenosis: Plan: See above (5) Hypertension: Plan: - Continue metoprolol succinate 100 mg extended release daily, and ramipril 5 mg every morning - BP slightly acceleratedlikely pain related (6) Extrinsic asthma: Plan: - Continue routine inhalers - Of note, patient has been on supplemental oxygen since admission, he has not been hypoxic. Staff reports "placed prophylactically given his habitus and likelihood for BHUMI and potential hypoxemia with administration of narcotic medication" (7) Hyperlipemia: Plan: Continue simvastatin 20 mg in evening (8) Type 2 diabetes mellitus: Plan: Hold empagliflozin and metformin - Place on Accu-Cheks before meals and at bedtime with NovoLog coverage per scale - BS currently acceptable (154, 144, 136). May experience steroid induced hyperglycemia thus will monitor closely (9) Peripheral neuropathy: Plan: - Chronic (10) Chronic gout: Plan: Continue allopurinol 300 mg daily Plan: For surgery today with Dr. Sheikh. Repeat labs in AM. Plan to be d/w Dr. Tom. Admission and Anticipated Discharge Date Admission Date: January 30, 2022 Subjective Patient seen on daily rounds this morning. He is resting semi comfortably in bed. Reports substantial pain with sitting, standing, and difficulty ambulating. No loss of bowel or bladder control. Denies saddle anesthesias. Is for surgery today with Dr. Sheikh for lumbar decompression and fusion. Review of Systems Review of Systems: All systems reviewed and are unremarkable except as noted in HPI and below +low back pain with radiating pain down right leg and difficulty walking Denies fevers, chills, headache, nasal congestion, sore throat, cough, chest pain, shortness of breath, palpitations, orthopnea, PND, abdominal pain, nausea, vomiting, diarrhea, constipation, dysuria, hematuria, frequency, joint pain or swelling, easy bruising or bleeding, skin lesions or rashes. Physical Exam Physical Exam: GENERAL: 66 yo obese WM. Pleasant, cooperative. NAD. LUNGS: Clear to auscultation bilaterally. CARDIOVASCULAR: Regular rate and rhythm. ABDOMEN: Soft, non-tender and non-distended. BS normal x 4 quad. EXTREMITIES: No edema. Non-tender. Peripheral pulses +2/4. NEUROLOGIC: A&O x3. No focal neurological deficits. PSYCHIATRIC: Cooperative. Appropriate mood and affect. SKIN: Warm, dry, intact. No rashes or lesions. Results & Data Results & Data ([facility]) Vital Signs (Past 12 Hours) Vital Signs Temp Pulse Resp BP Pulse Ox 01/31/22 07:18 36.6 C 54 L 18 167/90 H 93 Laboratory Results 01/31/22 05:22 01/31/22 05:22 PG Care Time/CCT Total # of Minutes Spent Total Time Spent with Patient: Total time spent is greater than 50% in coordination of care (as documented) at patient's floor/unit and/or counseling patient: Coding Level of Care Code 03792 Subseq Hosp Care Lvl 2 Diagnoses Intractable low back pain M54.59 Leukocytosis D72.829 Lumbar disc disease with radiculopathy M51.16 Lumbar spinal stenosis M48.061 Hypertension I10 Extrinsic asthma J45.909 Hyperlipemia E78.5 Type 2 diabetes mellitus E11.69 Diabetes mellitus fpc insulin use: without long wall mining machine tender use Diabetes mellitus complication status: with other specified complication Peripheral neuropathy G62.9 Chronic gout [id number] (1) Type 2 diabetes mellitus Diabetes mellitus long wall mining machine tender insulin use: without fpc use Diabetes mellitus complication status: with other specified complication Qualified Code(s): E11.69 - Type 2 diabetes mellitus with other specified complication
[2022-01-31] MEDS ORDERED: PROPOFOL IV EMULSION 10 MG/ML 20 ML VIAL IV ONE (14:21)
[2022-01-31] MEDS ORDERED: DEXAMETHASONE SOD INJ 4 MG/ML VIAL ONE (14:21)
[2022-01-31] MEDS ORDERED: ROCURONIUM BROMIDE 10 MG/ML 5 ML VIAL IV ONE (14:21)
[2022-01-31] MEDS ORDERED: ONDANSETRON INJ 2 MG/ML 2 ML VIAL ONE (14:21)
[2022-01-31] MEDS ORDERED: LIDOCAINE 2% 2 ML VIAL/AMP(20MG/ML) INFIL ONE (14:21)
[2022-01-31] MEDS ORDERED: fentaNYL citrate 100 MCG/2 ML VIAL ONE (14:22)
[2022-01-31] MEDS ORDERED: MIDAZOLAM HCL 1 MG/ML 2ML VIAL ONE (14:22)
--- NOTE | 2022-01-31 15:01 | History & Physical Bridge Note ---
Date of Service January 31, 2022 History & Physical Bridge Note I have examined the patient, reviewed the History & Physical and in the interval since the performance of the History & Physical I have noted the following changes of clinical significance: Patient continues to have marked severe right leg pain with inability to stand and ambulate with weightbearing right lower extremity. Subsequently we are undergoing urgent decompression and fusion L4- S1.
[2022-01-31] MEDS ORDERED: REMIFENTANIL HCL 1 MG VIAL ONE (15:24)
[2022-01-31] MEDS ORDERED: BUPIVACAINE/EPINEPHRINE 0.25% 1:200,000 30 ML VIAL ONE (15:26)
[2022-01-31] MEDS ORDERED: ceFAZolin 330 MG/ML 1 GM VIAL ONE (15:26)
[2022-01-31] MEDS ORDERED: ceFAZolin 2000MG 2,000 MG/15 ML SYR IV ONE (15:30)
[2022-01-31] MEDS: ceFAZolin 2,000 MG/15 ML IV PUSH IV ONE ×2 (15:37→21:38)
[2022-01-31] MEDS ORDERED: ePHEDrine sulfate 50 MG/ML AMP ONE (16:25)
[2022-01-31] MEDS ORDERED: FLOSEAL HEMOSTATIC MATRIX 10ML TOP ONE (17:20)
[2022-01-31] MEDS ORDERED: NEOSTIGMINE METHYLSULFATE 1 MG/ML 10ML VIAL ONE (18:34)
--- NOTE | 2022-01-31 18:35 | Operative Report ---
Post Operative Report Pre & Post Diagnosis Operation Date: 01/30/22 12:00 <No data on this case meets the specified criteria> Operation Date: 01/31/22 07:00 Pre-Op Diagnosis: Lumbar spinal stenosis with spondylolisthesis and far lateral disc herniation. Post-Op Diagnosis: Same I identified the patient and participated in the time-out.: Yes Procedure Operation Date: 01/30/22 12:00 <No data on this case meets the specified criteria> Operation Date: 01/31/22 07:00 Actual Procedures #1 lumbar decompression with bilateral medial facetectomies and foraminotomies L3-L4, L4-5 and L5 is 1. #2 posterior spinal fusion L4-L5 L5-S1. #3 placement posterior instrumentation L4-L5 L5-S1. #4 interbody fusion L4-L5 L5-S1. #5 placement of Spira 15 x 26 mm cage at L4-5 and 14 x 26 mm cage L5-S1. #6 placement locally harvested morselized autograft in the posterior gutters per #7 placement infuse collagen sponge, and master graft in the posterior lateral gutters and I factor interbody space. Surgeon Frank Sheikh, DO Loading Shovel Oiler None Estimated Blood Loss 100 Findings See Below The patient is 5 foot 9 weighing over 118 kg with a BMI in excess of 38. The patient's body was did contribute to significant technical difficulty requiring her deepest retractors longus instruments in order to perform his procedure. This at least 50% increase to the operative time. Specimens None Indications This is a 66-year-old male who presents the hospital with inability to ambulate and severe radiculopathy. After undergoing sedated MRI lumbar spine he was determined have severe spinal stenosis with an acute 4 lateral disc herniation L5-S1 on the right contributing to his severe radiculopathy. Subsequently elected to undergo emergent lumbar decompression and fusion so he can begin ambulation. Description of Procedure Patient was met with identified informed consent obtained. Patient was then taken to the operative suite underwent a patient placed in a prone position on Jaquan table atop the Vladimir frame. All bony prominences well-padded eyes inspected to ensure no external pressure placed upon the. This point lumbar spine was prepped and draped in normal sterile fashion. Sharp dissection with the assistance of Bovie cautery was performed down to and exposing the lamina transverse processes of L3-4 L5 and sacral ala bilaterally. From caudal to cephalad fashion complete laminectomy of L5 L4 and partial laminectomy of L3 was performed addressing severe spinal stenosis. As it did include recent excision of the far lateral disc herniation L5-S1 on the right. After complete decompression pedicle screws were placed in L for L5 and S1 levels bilaterally with assistance of fluoroscopy and the proper sized brielle placed. By way of a transforaminal portion radically discectomy of L5-S1 was performed endplates curetted to subcortical bleeding bone and a 14 x 26 mm spiral cage with I factor tapped in position. I then proceeded to L4-L5 again by way of a transforaminal portion right complete discectomy performed endplates curetted to subcortically bone and a 15 x 26 mm spiral cage filled I factor tapped in position. The rods were then compressed locked in final position bilaterally. The transverse processes of L for L5 and sacral ala burred to subcortical bleeding bone. Infuse collagen sponge mass graft local autograft was placed in the posterior gutters. 15 round RICHARD drain inserted. The incision was then closed with 1 Vicryl the fascia 2-0 Vicryl subcutaneously and 4 Monocryl for final skin closure. Steri-Strips dressings placed. Patient waken taken PACU stable condition. Please note spinal cord monitoring was utilized at the procedure no changes noted. I attest to the content of the Intraoperative Record and any orders documented therein. Any exceptions are noted below.
[2022-01-31] MEDS: fentaNYL citrate 100 MCG/2 ML VIAL IV PRN ×2 (19:18→19:23)
--- NOTE | 2022-01-31 19:33 | Fluoroscopy Report ---
FL lumbar spine 2-3V CLINICAL HISTORY: L4-L5, L5-S1 Decompression/fusion TECHNIQUE: 3 views were obtained with the C-arm in the OR with the above procedure. Total fluoroscopy time was 28.4 seconds. Total skin dose was 36.24 mGy. Comparison: None available at the time of this dictation. FINDINGS/IMPRESSION: Intraoperative images were obtained of posterior lumbar fixation hardware placem ent. Please correlate with intraoperative fluoroscopy and operative report. ACT 112: Negative or not required by law. Electronically signed by: Yoseph Witt M.D. 01/31/2022 7:31 PM
--- NOTE | 2022-01-31 19:48 | Anesthesiology Progress Note ---
Date of Service January 31, 2022 Anesthesia Post Procedure Vital Signs Vital Signs: Temp Pulse Pulse Resp BP BP Pulse Ox 01/31/22 19:35 59 L 13 163/81 H 92 01/31/22 19:25 60 12 163/81 H 92 01/31/22 19:15 63 12 163/84 H 94 01/31/22 19:05 64 12 164/83 H 96 01/31/22 18:55 68 16 152/77 H 96 01/31/22 18:49 97.3 F L 78 20 152/79 H 96 01/31/22 14:21 98.8 F 60 22 174/89 H 95 01/31/22 07:18 97.9 F 54 L 18 167/90 H 93 01/30/22 22:20 97.9 F 57 L 18 161/94 H 97 Pain Intensity Lower Back: Pain Intensity: 3 Transfer of Care Handoff Completed per policy Notes Mental Status: alert / awake / arousable and participated in evaluation Patient Amnestic to Procedure: Yes Nausea / Vomiting: adequately controlled Pain: adequately controlled Airway Patency, RR, SpO2: stable & adequate BP & HR: stable & adequate Hydration State: stable & adequate Anesthetic Complications: no major complications apparent and Pt Satisfied with anesthetic care
[2022-01-31] MEDS ORDERED: LORazepam 2 MG/1 ML VIAL IV PRN (20:11)
[2022-01-31] MEDS ORDERED: ACETAMINOPHEN 1,000 MG/100 ML VIAL IV PRN (20:11)
[2022-01-31] MEDS ORDERED: oxyCODONE HCL IR 5 MG TAB (IMMEDIATE RELEASE) PO PRN (20:11)
[2022-01-31] MEDS ORDERED: ALUMINUM/MAGNESIUM SUSP 30 ML UDC PO PRN (20:11)
[2022-01-31] MEDS ORDERED: FAMOTIDINE 20 MG TAB PO PRN (20:11)
[2022-01-31] MEDS ORDERED: hydrOXYzine HCl 25 MG TAB PO PRN (20:11)
[2022-01-31] MEDS ORDERED: traMADol HCL 50 MG TABLET PO PRN (20:11)
[2022-01-31] MEDS ORDERED: DO NOT ADMINISTER PNEUMOCOCCAL VACCINE PRN (20:11)
[2022-01-31] MEDS ORDERED: diphenhydrAMINE Capsule 25 MG CAP PO PRN (20:11)
[2022-01-31] MEDS ORDERED: HYDROmorphone INJ 0.5 MG/0.5 ML SYR IV PRN (20:11)
[2022-01-31] MEDS ORDERED: SOD PHOSPHATE/SOD BIPHOSPHATE ENEMA 132 ML BTL PR PRN (20:11)
[2022-01-31] MEDS ORDERED: LORazepam 0.5 MG TAB PO PRN (20:11)
[2022-01-31] MEDS ORDERED: MAGNESIUM HYDROXIDE SUSP 30 ML UDC PO PRN (20:11)
[2022-01-31] MEDS ORDERED: bisacodyL 10 MG SUPP PR PRN (20:11)
[2022-01-31] MEDS ORDERED: DO NOT ADMINISTER FLU VACCINE PRN (20:11)
[2022-01-31] MEDS ORDERED: PHARMACY GLYCEMIC MGMT CONSULT PRN (20:11)
[2022-01-31] MEDS ORDERED: ONDANSETRON 4 MG OD TAB PO PRN (20:11)
[2022-01-31] MEDS ORDERED: METOCLOPRAMIDE HCL INJ 5 MG/ML 2 ML VIAL IV PRN (20:11)
[2022-01-31] MEDS ORDERED: NALOXONE HCL 0.4 MG/1 ML VIAL/CARP IV PRN (20:11)
[2022-01-31] MEDS ORDERED: PROMETHAZINE HCL 12.5 MG in SODIUM CHLORIDE 0.9% 50 ML IV PRN (20:11)
[2022-01-31] MEDS: allopurinoL 300 MG TAB PO SCH (21:39)
[2022-01-31] MEDS: MONTELUKAST SODIUM 10 MG TABLET PO SCH (21:40)
[2022-01-31] MEDS: DOCUSATE SODIUM/SENNA 50/8.6MG TAB PO SCH (21:40)
[2022-01-31] MEDS: CETIRIZINE HCL 10 MG TABLET PO SCH (21:41)
[2022-01-31] MEDS: SIMVASTATIN 20 MG TAB PO SCH (21:41)
[2022-01-31] MEDS: ACETAMINOPHEN 500 MG TAB PO PRN (23:08)
[2022-01-31] MEDS: ceFAZolin 2000MG 2,000 MG/15 ML SYR IV SCH (23:59)
[2022-02-01] MEDS ORDERED: Nursing to Pharmacy Communication SCH (00:30)
[2022-02-01] MEDS: INSULIN ASPART PER UNIT SC SCH ×6 (00:45→20:50)
[2022-02-01] MEDS: SODIUM CHLORIDE 0.9% 1000ML 1,000 ML IV SCH (04:10)
[2022-02-01] MEDS: POLYETHYLENE (MIRALAX) 17 GM PACK PO SCH ×3 (05:15→16:58)
[2022-02-01 06:31] LABS: Hematocrit (blood only) 40.5 % (42-52); Immature Granulocytes # (auto) 0.04 K/uL (0.00-0.02); Immature Granulocytes % (auto) 0.3 %; Lymphocytes # (auto) 1.42 K/uL (1.2-3.4); Lymphocytes % (auto) 9.3 %; Mean Corpuscular Hemoglobin 30.4 pg (25-34); Mean Corpuscular Hgb Conc 32.1 g/dL (32-36); Mean Corpuscular Volume 94.6 fL (80-100); Mean Platelet Volume 10.1 fL (7.4-10.4); Monocytes # (auto) 1.18 K/uL (0.11-0.59); Monocytes % (auto) 7.7 %; Neutrophils # (auto) 12.61 K/uL (1.4-6.5); Neutrophils % (auto) 82.7 %; Platelet Count 214 K/uL (130-400); RDW Coefficient of Variation 14.8 % (11.5-14.5); RDW Standard Deviation 50.7 fL (36.4-46.3); Red Blood Count 4.28 M/uL (4.7-6.1); White Blood Count 15.25 K/uL (4.8-10.8)
[2022-02-01 06:49] LABS: BUN Creatinine Ratio 26.5 (10-20); Calcium 8.1 mg/dl (8.5-10.1); Creatinine Clr Calc Pharmacy 108.2 ml/min; Est GFR (African American) 104.8 ml/min; Est GFR (Non-African American) 90.4 ml/min; Potassium 4.3 mmol/L (3.5-5.1)
[2022-02-01] MEDS: ENALAPRIL MALEATE 10 MG TAB PO SCH (07:49)
[2022-02-01] MEDS: ASPIRIN 81 MG ECTAB PO SCH (07:50)
[2022-02-01] MEDS: METOPROLOL SUCC 50MG EXT REL TAB PO SCH (07:50)
[2022-02-01] MEDS: FLUTICASONE/VILANTEROL 200/25MCG 14 PUFFS/INHALER INH SCH (07:51)
[2022-02-01] MEDS: ceFAZolin 2000MG 2,000 MG/15 ML SYR IV SCH (08:01)
[2022-02-01] MEDS: dexAMETHasone 6 MG in SYRINGE 0 ML IV SCH (08:43)
--- NOTE | 2022-02-01 11:17 | Pharmacy Report ---
Pharmacy Glycemic Short Note 2 - Date of Service February 01, 2022 - Glycemic Short BSG Results (Last 24 hours): 01/31/22 01/31/22 01/31/22 11:53 18:57 20:47 Glucose POC Glucose 146 H 149 H 155 H 02/01/22 02/01/22 02/01/22 00:39 04:21 05:42 Glucose 163 H POC Glucose 167 H 136 H 02/01/22 07:50 Glucose POC Glucose 156 H OUTPATIENT ANTIDIABETIC REGIMEN: * Jardiance 10 mg PO daily * Metformin 1000 mg PO BID ASSESSMENT: * 66 y/o M admitted for Lumbar decompression and spinal fusion surgery yesterday. Patient with history of Type 2 diabetes managed on Jardiance and Metformin at home. HbA1c = 7% on 01/29/22 indicating well controlled diabetes. * Yesterday, patient was NPO post surgery. She received IV Dexamethasone 12 mg during surgery but her BSGs were at goal all throughout the day and she only required 2 units of bolus insulin last night. This is most likely because she was not eating. * Diet started today. * IV Dexamethasone continues at 6 mg daily x 3 days. 1st dose received today AM. * Novolog parameters tightened this AM to stress of 2 since expect BSGs to trend up with steroid induced hyperglycemia and diet. * So far, no basal insulin ordered since patient does not seem to need it. * Will resume home oral dose of Metformin BID with dinner today and loosen Novolog CR ratio. PLAN FOR INPATIENT GLYCEMIC CONTROL: * Resumed oral Metformin 1000 mg PO BID with dinner today * Basal insulin * none * Bolus insulin: loosened CR with dinner * NovoLog per scale ACHS or Q6hrs while NPO * Goal Range: Low 110 mg/dL - High 140 mg/dL * Correction Factor: 20 mg/dL/unit * Nutritional / Prandial insulin per carb ratio of 1 unit per 12 grams CHO consumed
--- NOTE | 2022-02-01 11:56 | Hospitalist Progress Note ---
Date of Service February 01, 2022 Assessment & Plan (1) Intractable low back pain: Plan: Intractable low back pain/lumbar spinal stenosis/lumbar disc disease with RLE radiculopathy s/p lumbar decompression and fusion POD#1 - Decadron as ordered by Dr. Sheikh - OxyIR, Tramadol, and Dilaudid ordered for pain * Will d/c OxyIR as pt has not required any doses of pain meds since surgery * Would utilize APAP and Tramadol (50mg-100mg dependent on pain scale) * Dilaudid can stay on board today but would d/c tomorrow (POD#2) - APAP ordered prn mild pain - d/c cortez - Ambulate as tolerated - RICHARD drain management per ortho (2) Leukocytosis: Plan: - Likely reactive from steroids (3) Lumbar disc disease with radiculopathy: Plan: See above (4) Lumbar spinal stenosis: Plan: See above (5) Hypertension: Plan: - Continue metoprolol succinate 100 mg daily, and ramipril 5 mg every morning - BP has been consistently accelerated ranging 140-160s - Will increase Ramipril to 10mg daily (or formulary equivalent) and monitor (6) Extrinsic asthma: Plan: - Continue routine inhalers (7) Hyperlipemia: Plan: Continue simvastatin 20 mg in evening (8) Type 2 diabetes mellitus: Plan: Hold empagliflozin and metformin - appears pharmacy consulted for glycemic management by Dr. Sheikh, thus further adjustments in meds will defer to them - Place on Accu-Cheks before meals and at bedtime with NovoLog coverage per scale - BS currently acceptable (154, 144, 136). May experience steroid induced hyperglycemia thus will monitor closely (9) Peripheral neuropathy: Plan: - Chronic (10) Chronic gout: Plan: Continue allopurinol 300 mg daily Plan: Remove cortez, increase Ramipril. No need for repeat labs in AM. H&H stable post op. Anticipate home in the next 24-48 hours. Will d/w plan with attending. Admission and Anticipated Discharge Date Admission Date: January 30, 2022 Subjective Patient seen on daily rounds this morning. Pt is pod#1 from L4-5 and L5-S1 decompression and fusion. He reports feeling much better, some mild lower back soreness/tightness. No pain radiating down right leg. No chest pain or dyspnea, fever, chills, or headache. Cortez catheter remains in place (placed in preparation for OR on 01/31). Was up ambulating this morning with assist of PT. Review of Systems Review of Systems: All systems reviewed and are unremarkable except as noted in HPI and below Denies fevers, chills, headache, nasal congestion, sore throat, cough, chest pain, shortness of breath, palpitations, orthopnea, PND, abdominal pain, nausea, vomiting, diarrhea, constipation, dysuria, hematuria, frequency, joint pain or swelling, easy bruising or bleeding, skin lesions or rashes. Physical Exam Physical Exam: GENERAL: 66 yo obese WM. Pleasant, cooperative. NAD. LUNGS: Clear to auscultation bilaterally. CARDIOVASCULAR: Regular rate and rhythm. ABDOMEN: Soft, non-tender and non-distended. BS normal x 4 quad. : cortez draining clear yellow urine EXTREMITIES: No edema. Non-tender. Peripheral pulses +2/4. NEUROLOGIC: A&O x3. No focal neurological deficits. PSYCHIATRIC: Cooperative. Appropriate mood and affect. SKIN: Warm, dry, intact. No rashes or lesions. Incision dressed. RICHARD drain v isualized. Results & Data Results & Data ([facility]) Vital Signs (Past 12 Hours) Vital Signs Temp Pulse Pulse Resp BP Pulse Ox 02/01/22 08:07 17 93 02/01/22 07:30 36.4 C L 59 L 12 156/85 H 97 02/01/22 04:12 36.7 C 57 L 16 144/74 H 97 02/01/22 00:01 36.5 C 64 18 144/72 H 96 Laboratory Results 02/01/22 05:42 02/01/22 05:42 PG Care Time/CCT Total # of Minutes Spent Total Time Spent with Patient: Total time spent is greater than 50% in coordination of care (as documented) at patient's floor/unit and/or counseling patient: Coding Level of Care Code 39926 Subseq Hosp Care Lvl 2 Diagnoses Intractable low back pain M54.59 Leukocytosis D72.829 Lumbar disc disease with radiculopathy M51.16 Lumbar spinal stenosis M48.061 Hypertension I10 Extrinsic asthma J45.909 Hyperlipemia E78.5 Type 2 diabetes mellitus E11.69 Diabetes mellitus terminal block assembler insulin use: without correction use Diabetes mellitus complication status: with other specified complication Peripheral neuropathy G62.9 Chronic gout M1A.9XX0 (1) Type 2 diabetes mellitus Diabetes mellitus correction insulin use: without correction use Diabetes philip litus complication status: with other specified complication Qualified Code(s): E11.69 - Type 2 diabetes mellitus with other specified complication
--- NOTE | 2022-02-01 13:26 | Orthopedic Progress Note ---
Date of Service February 01, 2022 Assessment & Plan (1) Acute lumbar radiculopathy: Plan: At this time continue physical therapy monitor his RICHARD output hopefully discharge home latter half this weekend. Admission and Anticipated Discharge Date Admission Date: January 30, 2022 Subjective Patient's back pain controlled leg pain markedly improved Physical Exam Physical Exam: Patient is good strength testing appears comfortable. Results & Data ([facility]) Vital Signs (Past 12 Hours) Vital Signs Temp Pulse Pulse Resp BP Pulse Ox 02/01/22 11:00 37.2 C 62 16 150/80 H 96 02/01/22 08:07 17 93 02/01/22 07:30 36.4 C L 59 L 12 156/85 H 97 02/01/22 04:12 36.7 C 57 L 16 144/74 H 97
[2022-02-01] MEDS: metFORMIN HCL 500 MG TAB PO SCH (16:18)
--- NOTE | 2022-02-01 17:53 | Electrocardiogram Report ---
Test Reason : Blood Pressure : / mmHG Vent. Rate : 055 BPM Atrial Rate : 055 BPM P-R Int : 168 ms QRS Dur : 138 ms QT Int : 476 ms P-R-T Axes : 009 -22 -02 degrees QTc Int : 455 ms Sinus bradycardia Right bundle branch block Abnormal ECG When compared with ECG of 01-MAY-2018 09:17, Vent. rate has decreased BY 32 BPM Confirmed by Hao Medina ([id number]) on 02/01/2022 5:52:31 PM Referred By: Radhames Bruce Confirmed By:Hao Medina
[2022-02-01] MEDS: DOCUSATE SODIUM/SENNA 50/8.6MG TAB PO SCH (20:14)
[2022-02-01] MEDS: MONTELUKAST SODIUM 10 MG TABLET PO SCH (20:14)
[2022-02-01] MEDS: SIMVASTATIN 20 MG TAB PO SCH (20:15)
[2022-02-01] MEDS: CETIRIZINE HCL 10 MG TABLET PO SCH (20:15)
[2022-02-01] MEDS: allopurinoL 300 MG TAB PO SCH (20:15)
[2022-02-02] MEDS: POLYETHYLENE (MIRALAX) 17 GM PACK PO SCH ×4 (05:36→17:52)
[2022-02-02] MEDS: ACETAMINOPHEN 500 MG TAB PO PRN ×3 (05:42→22:30)
[2022-02-02] MEDS: metFORMIN HCL 500 MG TAB PO SCH ×2 (08:09→17:51)
[2022-02-02] MEDS: ENALAPRIL MALEATE 10 MG TAB PO SCH (08:10)
[2022-02-02] MEDS: METOPROLOL SUCC 50MG EXT REL TAB PO SCH (08:10)
[2022-02-02] MEDS: ASPIRIN 81 MG ECTAB PO SCH (08:11)
[2022-02-02] MEDS: FLUTICASONE/VILANTEROL 200/25MCG 14 PUFFS/INHALER INH SCH (08:12)
[2022-02-02] MEDS: dexAMETHasone 6 MG in SYRINGE 0 ML IV SCH (08:13)
[2022-02-02] MEDS: INSULIN ASPART PER UNIT SC SCH ×4 (08:53→20:53)
--- NOTE | 2022-02-02 10:33 | Orthopedic Progress Note ---
Date of Service February 02, 2022 Assessment & Plan (1) Acute lumbar radiculopathy: Plan: At this time we will continue physical therapy monitor his RICHARD output over the discharge home tomorrow. Admission and Anticipated Discharge Date Admission Date: January 30, 2022 Subjective Back pain controlled leg symptoms markedly improved Physical Exam Physical Exam: Patient is in a chair at the bedside. Is comfortable. Is good strength testing. Results & Data ([facility]) Vital Signs (Past 12 Hours) Vital Signs Temp Pulse Resp BP Pulse Ox 02/02/22 08:08 69 146/79 H 02/02/22 07:28 36.6 C 72 16 128/66 97 02/01/22 22:46 36.7 C 68 18 144/81 H 94
--- NOTE | 2022-02-02 15:50 | Hospitalist Progress Note ---
Date of Service February 02, 2022 Assessment & Plan (1) Intractable low back pain: Plan: Intractable low back pain/lumbar spinal stenosis/lumbar disc disease with RLE radiculopathy s/p lumbar decompression and fusion done 01/31. Patient had an uneventful perioperative course - Decadron as ordered by Dr. Sheikh - OxyIR, Tramadol, and Dilaudid ordered for pain but patient utilizing only Tylenol - Pain is adequately controlled. Meeting therapy goals. - Seen by Dr. Sheikh today who would like him to remain in-house until tomorrow given RIHCARD drainage (2) Leukocytosis: Plan: - Likely reactive from steroids (3) Lumbar disc disease with radiculopathy: Plan: See above (4) Lumbar spinal stenosis: Plan: See above (5) Hypertension: Plan: - Continue metoprolol succinate 100 mg daily, and ramipril 5 mg every morning - BP has been consistently accelerated ranging 140-160s - Will increase Ramipril to 10mg daily (or formulary equivalent) and monitor (6) Extrinsic asthma: Plan: - Continue routine inhalers (7) Hyperlipemia: Plan: Continue simvastatin 20 mg in evening (8) Type 2 diabetes mellitus: Plan: Hold empagliflozin and metformin - appears pharmacy consulted for glycemic management by Dr. Sheikh, thus further adjustments in meds will defer to them - Place on Accu-Cheks before meals and at bedtime with NovoLog coverage per scale - BS currently acceptable (154, 144, 136). May experience steroid induced hyperglycemia thus will monitor closely (9) Peripheral neuropathy: Plan: - Chronic (10) Chronic gout: Plan: Continue allopurinol 300 mg daily Plan: DC to home likely tomorrow Plan of care discussed with Dr. Tracey Admission and Anticipated Discharge Date Admission Date: January 30, 2022 Subjective Patient seen on daily rounds today. Vocalizes no complaints or concerns. Pain is adequately controlled. Utilizing only Tylenol for pain. Moving bowel bladde r without difficulty. Meeting therapy goals. Seen by Dr. Sheikh who recommends keeping him overnight given RICHARD drainage. Denies fevers, chills, chest pain, shortness of breath, abdominal pain, nausea or vomiting. Nursing voices no complaints or concerns. Review of Systems Review of Systems: All systems reviewed and are unremarkable except as noted in HPI and below Denies fevers, chills, headache, nasal congestion, sore throat, cough, chest pain, shortness of breath, palpitations, orthopnea, PND, abdominal pain, nausea, vomiting, diarrhea, constipation, dysuria, hematuria, frequency, back pain, william nt pain or swelling, easy bruising or bleeding, skin lesions or rashes. Physical Exam Physical Exam: General: Resting comfortably in his bedside chair. NAD. HEENT: Head is AT/NC. Buccal mucosa is moist and pink Neck: No JVD. Negative hepatojugular reflex Cardiac: Distant heart sounds due to habitus without M/G/R Lungs: CTA without W/R/R Abdomen: Normoactive X4. Soft and nontender in all quadrants. Extremities: No peripheral clubbing cyanosis or edema. Surgical dressing to low back dry and intact. Indwelling RICHARD drain. Neuro: A&O X4. Cranial nerves II through XII are grossly intact. No focal neuro deficits Skin: No obvious skin lesions or rashes Psych: Appropriate affect. Pleasant and cooperative Results & Data Results & Data ([facility]) Vital Signs (Past 12 Hours) Vital Signs Temp Pulse Resp BP Pulse Ox 02/02/22 14:35 36.9 C 67 16 116/71 93 02/02/22 08:08 69 146/79 H 02/02/22 07:28 36.6 C 72 16 128/66 97 Laboratory Results 02/01/22 05:42 02/01/22 05:42 PG Care Time/CCT Total # of Minutes Spent Total Time Spent with Patient: Total time spent is greater than 50% in coordination of care (as documented) at patient's floor/unit and/or counseling patient: Coding Level of Care Code 52437 Subseq Hosp Care Lvl 1 Diagnoses Intractable low back pain M54.59 Leukocytosis D72.829 Lumbar disc disease with radiculopathy M51.16 Lumbar spinal stenosis M48.061 Hypertension I10 Extrinsic asthma J45.909 Hyperlipemia E78.5 Type 2 diabetes mellitus E11.69 Diabetes mellitus penitentiary insulin use: without penitentiary use Diabetes mellitus complication status: with other specified complication Peripheral neuropathy G62.9 Chronic gout [id number].[id number] (1) Type 2 diabetes mellitus Diabetes mellitus watermelon inspector insulin use: without penitentiary use Diabetes mellitus complication status: with other specified complication Qualified Code(s): E11.69 - Type 2 diabetes mellitus with other specified complication
[2022-02-02] MEDS: allopurinoL 300 MG TAB PO SCH (20:26)
[2022-02-02] MEDS: MONTELUKAST SODIUM 10 MG TABLET PO SCH (20:26)
[2022-02-02] MEDS: CETIRIZINE HCL 10 MG TABLET PO SCH (20:26)
[2022-02-02] MEDS: DOCUSATE SODIUM/SENNA 50/8.6MG TAB PO SCH (20:26)
[2022-02-02] MEDS: SIMVASTATIN 20 MG TAB PO SCH (20:27)
--- NOTE | 2022-02-03 07:54 | Orthopedic Progress Note ---
Date of Service February 03, 2022 Assessment & Plan (1) Spinal stenosis: Plan: At this point patient is doing well his pain is well controlled. His RICHARD drain has slowed down. He has been deemed safe for home discharge. He is to lift nothing heavier than 5 to 7 pounds should not perform any full bending at the waist. We will DC his drain and dressing change before he leaves as long as he is cleared by medicine. We will see him in the office in 2 weeks or sooner if he develops any increased pain, fever, chills, or drainage from the incision Admission and Anticipated Discharge Date Admission Date: January 30, 2022 Subjective Patient seen bedside in room 353. He is postop day #3 status post lumbar decompression fusion from L4-S1. He is doing well today. His pain is well controlled. He is not having any radicular complaints. He has not needed any pain medication. He is been up and walking independently. He would like to go home. He denies any other numbness, tingling, or paresthesias. Physical Exam Physical Exam: On exam he is alert and oriented. His abdomen soft nontender his calves are supple nontender. Strength and sensation are both intact his RICHARD drain is holding suction has had 35 cc on the left shift and 25 on the previous. Results & Data ([facility]) Vital Signs (Past 12 Hours) Vital Signs Temp Pulse Resp BP Pulse Ox 02/03/22 07:22 36.5 C 70 16 132/72 96 02/02/22 22:34 36.6 C 65 19 126/72 95 (1) Spinal stenosis Neurogenic claudication status: unspecified Spinal region: lumbar Qualified Code(s): M48.061 - Spinal stenosis, lumbar region without neurogenic claudication
[2022-02-03] MEDS: FLUTICASONE/VILANTEROL 200/25MCG 14 PUFFS/INHALER INH SCH (08:07)
[2022-02-03] MEDS: ENALAPRIL MALEATE 10 MG TAB PO SCH (08:09)
[2022-02-03] MEDS: ASPIRIN 81 MG ECTAB PO SCH (08:09)
[2022-02-03] MEDS: metFORMIN HCL 500 MG TAB PO SCH (08:09)
[2022-02-03] MEDS: METOPROLOL SUCC 50MG EXT REL TAB PO SCH (08:10)
[2022-02-03] MEDS: dexAMETHasone 6 MG in SYRINGE 0 ML IV SCH (08:12)
[2022-02-03] MEDS: INSULIN ASPART PER UNIT SC SCH ×2 (08:46→12:40)
[2022-02-03] MEDS: ACETAMINOPHEN 500 MG TAB PO PRN (09:38)
--- NOTE | 2022-02-03 11:17 | Discharge Summary ---
Date of Service February 03, 2022 Admission HPI Per Admitting Provider The patient is a 66-year-old male with a past medical history including chronic maxillary sinusitis, allergic rhinitis, diabetic retinopathy, dilated aortic root, hypercholesterolemia, hypertension, morbid obesity, peripheral neuropathy, RBBB, selective IgM deficiency, diabetes mellitus and hyperlipidemia. Patient reports he exercises on a regular basis, however, 4 days ago he noticed a twinge in his low back prior to exercising, was able to exercise as normal, then felt more sore 3 days ago, limiting his activity. Since that time, his pain has worsened considerably, and radiates down his right lower extremity as noted. He notes that his right lower extremity has an area of numbness on the posterior calf area, and circumferentially around the ankle. He denies any direct history of trauma. He denies any loss of bowel or bladder control Principal Diagnosis 1. Intractable back pain d/t spinal stenosis s/p lumbar decompression and fusion 2. Leukocytosis--secondary to steroids Discharge Exam GENERAL: 66 yo obese WM. Pleasant, cooperative. NAD. LUNGS: Clear to auscultation bilaterally. CARDIOVASCULAR: Regular rate and rhythm. ABDOMEN: Soft, non-tender and non-distended. BS normal x 4 quad. EXTREMITIES: No edema. Non-tender. Peripheral pulses +2/4. NEUROLOGIC: A&O x3. No focal neurological deficits. PSYCHIATRIC: Cooperative. Appropriate mood and affect. SKIN: Warm, dry, intact. No rashes or lesions. Incision dressed. RICHARD drain visualized, small amount of serosanguinous drainage. Discharge Data Allergies Allergy/AdvReac Type Severity Reaction Status Date / Time latex Allergy Mild RASH Verified 01/30/22 11:27 pain killers AdvReac Intermediate Nausea / Uncoded 01/30/22 11:27 vomiting Consultations 01/28/22 19:57 ED Decision to Admit Stat 01/29/22 04:43 Consult Orthopedic Surgery Routine 01/29/22 10:21 Consult Anesthesiology Routine Procedures Performed Operation Date: 01/30/22 12:00 <No data on this case meets the specified criteria> Operation Date: 01/31/22 07:00 Actual Procedures p L4-L5 L5-S1 Decompression and Fusion(Not Applicable) - Frank Sheikh DO Ordered Studies Lumbar Spine MRI 01/30/22 12:00 MR LUMBAR SPINE WO CON CLINICAL HISTORY: 66 years-old Male with low back pain with radiculopathy. Chronic low back pain. COMPARISON: MRI lumbar spine 06/18/2021 TECHNIQUE: Multiplanar, multi sequence MRI of the lumbar spine was performed without intravenous contrast. FINDINGS: The barrel handler localizer images demonstrate no gross extraspinal abnormality. The imaged intra-abdominal structures are unremarkable. Nonspecific bilateral perinephric stranding, right greater than left. The conus medullaris terminates at the L1 level. Normal signal within the imaged thoracic spinal cord. Unremarkable cauda equina. No acute fracture, subluxation or endplate erosion. Mild marrow edema is noted involving the pedicles and facets at L4-L5 with mild adjacent deep tissue edema, likely reactive. Edema tracks into the paraspinal musculature. T12-L1: There is mild spondylitic spurring with ligamentum flavum thickening and moderate facet arthrosis. No central canal or neural foraminal stenosis. L1-L2: There is mild spondylitic spurring with ligamentum flavum thickening and moderate facet arthrosis. No central canal or neural foraminal stenosis. L2-L3: There is mild spondylitic spurring with ligamentum flavum thickening and moderate facet arthrosis. No central canal or neural foraminal stenosis. L3-L4: Mild intervertebral disc space narrowing with spondylitic spurring. Posterior annular disc bulge with ligamentum flavum thickening and moderate facet arthrosis. Mild to moderate central canal stenosis, AP dimension of the thecal sac measuring 7 mm. There is mild narrowing of the left greater than right lateral recesses. There is mild left greater than right neural foraminal narrowing which is stable. L4-L5: Mild spondylitic spurring with small circumferential annular disc bulge. Ligamentum flavum thickening with severe facet arthrosis and bilateral facet effusions. There is severe central canal stenosis, AP dimension of the thecal sac measuring 4.5 mm, unchanged. There is severe narrowing of the lateral recesses. Mild to moderate right with moderate left neural foraminal narrowing is similar to prior. L5-S1: Right foraminal/right far lateral disc bulge is redemonstrated likely abutting the exiting L5 nerve root. Ligamentum flavum thickening with severe facet arthrosis and small facet effusions. Moderate to severe right with mild left neural foraminal narrowing is unchanged. The central canal is patent. IMPRESSION: 1. Multilevel discogenic degeneration with ligamentum flavum thickening and facet arthrosis as above. The study is generally stable from the 06/18/2021 exam. 2. High-grade central canal narrowing at L4-L5 redemonstrated along with multilevel neural foraminal narrowing. ACT 112: Negative or not required by law. The above report was generated using voice recognition software. It may contain grammatical, syntax or spelling errors. Dictated: 01/30/2022 1:52 PM Transcribed: 01/30/2022 2:27 PM Keke [id number] [facility]_Ompage Electronically signed by: Nabeel Harris M.D. 01/30/2022 3:25 PM Lumbar Spine X-Ray 01/31/22 00:00 FL lumbar spine 2-3V CLINICAL HISTORY: L4-L5, L5-S1 Decompression/fusion TECHNIQUE: 3 views were obtained with the C-arm in the OR with the above procedure. Total fluoroscopy time was 28.4 seconds. Total skin dose was 36.24 mGy. Comparison: None available at the time of this dictation. FINDINGS/IMPRESSION: Intraoperative images were obtained of posterior lumbar fixation hardware placement. Please correlate with intraoperative fluoroscopy and operative report. ACT 112: Negative or not required by law. Electronically signed by: Yoseph Witt M.D. 01/31/2022 7:31 PM Hospital Course (1) Intractable low back pain: Intractable low back pain/lumbar spinal stenosis/lumbar disc disease with RLE radiculopathy s/p lumbar decompression and fusion done 01/31. Patient had an uneventful perioperative course - Decadron as ordered by Dr. Sheikh - OxyIR, Tramadol, and Dilaudid ordered for pain but patient utilizing only Tylenol - Pain is adequately controlled. Meeting therapy goals. - Seen by Dr. Sheikh on 02/02, wanted to remain in house until today d/t increased drainage in RICHARD - Seen by ortho PAMaria IsabelC, felt to be stable for d/c. Advised RICHARD drain removal and dressing change prior to d/c. - Pt will f/u in the office as directed (2) Leukocytosis: - Likely reactive from steroids (3) Lumbar disc disease with radiculopathy: See above (4) Lumbar spinal stenosis: See above (5) Hypertension: - Pt prescribed metoprolol succinate 100 mg daily, and ramipril 5 mg every morning which was continued - BP has been consistently accelerated ranging 140-160s - Ramipril increased to 10mg daily (or formulary equivalent) on 02/01 (6) Extrinsic asthma: - Continue routine inhalers (7) Hyperlipemia: - Continue simvastatin 20 mg in evening (8) Type 2 diabetes mellitus: Hold empagliflozin and metformin - appears pharmacy consulted for glycemic management by Dr. Sheikh, thus further adjustments in meds will defer to them - Place on Accu-Cheks before meals and at bedtime with NovoLog coverage per scale - BS currently acceptable (154, 144, 136). May experience steroid induced hyperglycemia thus will monitor closely (9) Peripheral neuropathy: - Chronic (10) Chronic gout: - Continue allopurinol 300 mg daily Pt to be discharged home today with orthopedic f/u. Follow all discharge instructions as written by ortho. Plan of care discussed with Dr. Tracey Total Time Total Time Spent Total Time Spent (In Minutes): >30 minutes Discharge Plan Discharge Items Patient Disposition: Home - Self-Care Reason For Visit: INTRACTABLE LOW BACK PAIN Discharge Diagnosis: lumbar spinal stenosis with radiculopathy Activity: As commented below Non-emergency contact: Primary Care Provider Call non-emergency contact if: you have any medication questions Follow-up/Referrals: Stefano Ramirez III, CRNP [Primary Care Provider] - Diet: Regular Addtl Attending Provider Instructions: ACTIVITY RECOMMENDATIONS: SELF CARE INSTRUCTIONS AFTER CERVICAL FUSIONS 1. No smoking. Smoking drastically decreases the chance of a solid fusion. 2. No bending, lifting more than 5 pounds, or twisting (roll like a log when turning in bed). 3. You may shower 3 days after surgery. Thoroughly dry wound. Do not soak in the tub. 4. Cervical collar: Must be worn at all times including sleeping. You may remove the brace only to bath, eat and if you are sitting in a recliner. 5. Please walk as much as you can for exercise. Gradually increase the distance that you walk as your endurance increases. SPECIAL CARE INSTRUCTIONS: VERY IMPORTANT TO READ AND REVIEW A. Do not take any anti-inflammatory medications (i.e. Indocin, Advil, Aspirin, Naprosyn, Aleve, Motrin, etc.) as these may inhibit the chance of a solid fusion. Tylenol is okay to take. B. Your surgical incision has been closed with a cosmetic suture under the skin that will dissolve in about 6 weeks. In 14 days, you can use a pair of clean scissors and cut the suture that is left outside of the skin at the ends of your incision. C. Complications are uncommon, but please contact us if you have any signs or symptoms of: 1. wound infection (fever higher than 102.5 degrees F, redness, separation of wound, drainage, or increasing pain from the incision) 2. blood clots in legs (pain, swelling, redness and warmth in legs) 3. urinary tract infection (fever higher than 102.5 degrees, burning upon urination or increased frequency of urination) 4. nerve problems (inability to walk on your toes or heels, numbness, loss of bowel or bladder control) 5. any other symptoms that concern you. D. Please call the office at if you have any concerns or questions about your operation or recovery. MANAGING PAIN AFTER SPINAL SURGERY 1. Narcotic medication is intended for short-term use and will be provided for surgical pain. Surgical pain usually lasts for a period of 4-6 weeks. Narcotic medication includes Percocet, Vicodin, Darvocet, Tylenol #3 or Lortab. 2. Longer-term pain is more appropriately treated with non-narcotic medication such as Tylenol ES. 3. Muscle spasm is not appropriately treated with narcotics. Muscle relaxers such as Soma, Flexeril or Skelaxin can be used along with Tylenol ES. 4. Remember that we all live with some "aches and pains". This is not unusual or uncommon after an injury or as we get older. 5. We will provide appropriate medication within the normal guidelines of their prescribed use. We will also be very cautious and aware of potential abuse and extended duration of patients' medication needs. 6. Please allow 2-3 days to process refills. Prescriptions will not be mailed but must be picked up at the office. FOLLOW UP VISIT: Keep your scheduled follow-up appointment. Any questions, please call the office at . Pending Studies at Discharge: No Stand-Alone Forms: My MedPro, Smoking Cessation Medications and DC Order Prescriptions: New oxycodone 5 mg tablet 5 mg PO Q6H PRN (Reason: pain, severe) Qty: 30 RF: 0 tramadol 50 mg tablet 50 mg PO Q6H PRN (Reason: pain, moderate) Qty: 30 RF: 0 ondansetron 4 mg Tablet,Disintegrating 4 mg PO Q6H PRN (Reason: nausea and vomiting) Qty: 30 RF: 1 Continued (DME) lancets [Microlet Lancet] Misc See Rx Instructions .ROUTE .MEDSUPPLY Qty: 100 RF: 3 (DME) FreeStyle Susan 2 Allen Misc See Rx Instructions .ROUTE .MEDSUPPLY Qty: 1 RF: 0 montelukast 10 mg tablet 10 mg PO HS Qty: 90 RF: 3 ramipril 5 mg capsule 5 mg PO QAM Qty: 90 RF: 1 fluticasone propion-salmeterol [Advair Diskus] 250-50 mcg/dose blister with device 1 inh INHALATION BID Qty: 60 RF: 5 metoprolol succinate 100 mg tablet extended release 24 hr 100 mg PO QAM Qty: 90 RF: 1 simvastatin 20 mg tablet 20 mg PO QPM Qty: 90 RF: 1 allopurinol 300 mg tablet 300 mg PO QPM Qty: 30 RF: 5 metformin 500 mg tablet 1,000 mg PO BID Qty: 120 RF: 5 Jardiance 25 mg tablet 25 mg PO DAILY Qty: 90 RF: 3 (DME) FreeStyle Susan 2 Sensor Kit See Rx Instructions .ROUTE .MEDSUPPLY Qty: 6 RF: 3 amoxicillin-pot clavulanate 875-125 mg tablet 1 tab PO BID Qty: 20 RF: 1 Atrovent HFA 17 mcg/actuation HFA aerosol inhaler 3 puff INHALATION BID Qty: 12.9 RF: 3 albuterol sulfate 90 mcg/actuation HFA aerosol inhaler 1 puff inhalation UD PRN (Reason: sob) Qty: 1 RF: 0 nasal flush 1 spray Flush BID RF: 0 aspirin 81 mg Tablet,Delayed Release (Dr/Ec) 81 mg PO QAM RF: 0 Claritin-D 12 Hour 5-120 mg tablet extended release 12 hr 1 tab PO QAM PRN (Reason: Allergy Symptoms) RF: 0 levocetirizine 5 mg tablet 5 mg PO HS RF: 0 Discharge Orders: Discharge Order (Routine); Ordered 02/03/22 Ordered By: Ruslan Mckoy/Other Patient Handouts: Managing Type 2 Diabetes, After Back Surgery: Going Home Admission Data Admit Date/Time: 01/30/22 14:03 Attending Provider: Krishna Tracey Admit Provider: Christian Sorensen Primary Care Provider: Stefano Ramirez III Other Providers: Frank Sheikh ; Alexa Flores ; Krishna Tracey. Other Interventions: Discharge Summary Assessment (RN) Last Done: 02/03/22 11:20 Supervising Physician Co-Signing Physician Notes I supervised Dede Nicole PA-C on the care of this patient. I interviewed and examined the patient independently of her. The plan is as written in her note except for any following changes/exceptions: None Doing well today. Inspected back. Drain site is clean, and drain will be removed by RN prior to leaving. Incision is clean and intact with Steri-Strips. Encouraged him not to pull those off, but let them fall off naturally. Otherwise, ready for discharge. Coding Level of Care Code D/C DAY MANAGEMENT >30 MINS Diagnoses Intractable low back pain M54.59 Leukocytosis D72.829 Lumbar disc disease with radiculopathy M51.16 Lumbar spinal stenosis M48.061 Hypertension I10 Extrinsic asthma J45.909 Hyperlipemia E78.5 Type 2 diabetes mellitus E11.69 Diabetes mellitus complication status: with other specified complication Diabetes mellitus long term care administrator insulin use: without long term care administrator use Peripheral neuropathy G62.9 Chronic gout M1A.9XX0
== END 2022-02-03 13:21 | disposition home or self-care (01) | DRG 455 ==
LOC: ED 12:18 → 3W 12:18 → SUATTDRO 21:26 → 3W 22:26 → SUATTDRO 01-30 02:50